=== PATIENT | male | born 1975 | race Two or more races ===

== ENCOUNTER 2024-12-06 07:14 | Inpatient (IN) | payer BC, OTHER ==
[~2024-12-06] VITALS: Ht 165.1 cm; Wt 101.8 kg
[2024-12-06 07:35] LABS: Urine Bacteria None Seen /hpf (None Seen)
[2024-12-06 07:47] LABS: Urine Blood 2+ /uL (Negative); Urine Clarity Clear (Clear); Urine Color Light-Yellow (Yellow); Urine Protein, UAD TRACE (Negative); Urine Specific Gravity 1.016 (1.001-1.035); Urine Squamous Epithelial Cell None Seen /hpf (<5); Urine Urobilinogen Normal (Negative); Urine WBC 1 /HPF (0-3)
--- NOTE | 2024-12-06 07:51 | ED.PDOC ---
GI ASSESSMENT HPI Comments A 49 YEAR OLD MALE PRESENTS TO THE ED WITH COMPLAINT OF ABDOMINAL PAIN WITH NAUSEA AND VOMITING. URINE PATIENT STATES HE ATE A SALAD YESTERDAY NIGHT AND BEGAN TO EXPERIENCE LEFT LOWER QUADRANT ABDOMINAL PAIN THAT RADIATES TO HIS BACK, BUT NOTES HIS PAIN IS NOW IN HIS RIGHT LOWER QUADRANT OF THE ABDOMEN AND RADIATES TO HIS BACK. PATIENT REPORTS HE WAS ALSO EXPERIENCING NAUSEA AND VOMITING WITH HIS PAIN. PATIENT DENIES HEMATURIA, DYSURIA, FLANK PAIN, FEVER, CHILLS, SHORTNESS OF BREATH, CHEST PAIN, HEADACHE, OR OTHER COMPLAINTS. NO OTHER SYMPTOMS OR MODIFYING FACTORS AT THIS TIME. PATIENT IS ALERT, ORIENTED X 4, AND HAS STEADY GAIT. Chief Complaint: Abdominal Pain Time Seen by MD: 07:26 Primary Care Provider: NONE Reviewed Notes: Nurses Notes, Medications, Allergies Allergies: Coded Allergies: NO KNOWN ALLERGIES (Unverified , 12/06/24) Information Source: Patient Mode of Arrival: Ambulatory Timing: Days Duration: Since onset, Days Prehospital treatment: None Quality: Aching, Cramping, Sharp, Colicky Vomitus: Food Particles Stool: Normal Severity: Moderate Recent: None Recent Hx of: None Pain Location: RLQ, LLQ Modifying Factors: Nothing Associated sign and symptoms: Nausea, Vomiting, Abdominal Pain Past Medical History PAST MEDICAL HISTORY: Denies Surgical History: Denies all surgeries Family History Family History: Reviewed,noncontributory to illness Social History Smoker: Non-Smoker Alcohol: Denies ETOH Use Drugs: Denies Drug Use Lives In: Home Constitutional: denies: chills, diaphoresis, fatigue, fever, malaise, sweats, weakness, others EENTM: denies: blurred vision, double vision, ear bleeding, ear discharge, ear drainage, ear pain, ear ringing, eye pain, eye redness, hearing loss, mouth pain, mouth swelling, nasal discharge, nose bleeding, nose congestion, nose pain, photophobia, tearing, throat pain, throat swelling, voice changes, others Respiratory: denies: cough, hemoptysis, orthopnea, SOB at rest, shortness of breath, SOB with excertion, stridor, wheezing, others Gastrointestinal: reports: abdominal pain, nausea, vomiting; denies: abdomen distended, blood streaked bowels, constipated, diarrhea, dysphagia, difficulty swallowing, hematemesis, melena, poor appetite, poor fluid intake, rectal bleeding, rectal pain, others Genitourinary: reports: flank pain; denies: burning, dysuria, frequency, hematuria, incontinence, penile discharge, penile sore, pain, testicle pain, testicle swelling, urgency, others Neurological: denies: dizziness, fainting, headache, left sided numbness, left sided weakness, numbness, paresthesia, pre-existing deficit, right sided numbness, right sided weakness, seizure, speech problems, tingling, tremors, weakness, others Musculoskeletal: reports: back pain; denies: gout, joint pain, joint swelling, muscle pain, muscle stiffness, neck pain, others Integumetry: denies: bruises, change in color, change in hair/nails, dryness, laceration, lesions, lumps, rash, wounds, others Allergic/Immunocompromised: denies: Difficulty Healing, Frequent Infections, Hives, Itching, others Hematologic/Lymphatic: denies: anemia, blood clots, easy bleeding, easy bruising, swollen glands, others Endocrine: denies: excessive hunger, excessive sweating, excessive thirst, excessive urination, flushing, intolerance to cold, intolerance to heat, unexplained weight gain, unexplained weight loss, others Psychiatric: denies: anxiety, bipolar disorder, depression, hopeless, panic disorder, schizophrenia, sleepless, suicidal, others All Other Systems: Reviewed and Negative Physical Exam General Appearance: No Apparent Distress, Obese HEENT: Normal ENT Inspection, PERRL/EOMI, Pharynx Normal, TMs Normal Neck: Full Range of Motion, Non-Tender, Normal, Normal Inspection Respiratory: Chest Non-Tender, Lungs Clear, No Accessory Muscle Use, No Respiratory Distress, Normal Breath Sounds Cardiovascular: No Edema, No JVD, No Murmur, No Gallop, Normal Peripheral Pulses, Regular Rate/Rhythm Breast Exam: Deferred Gastrointestinal: Distended (GENERAL ABD. ), LLQ, No Organomegaly, No Pulsatile Mass, Normal Bowel Sounds, RLQ, Soft, Tenderness (RIGHT LOWER ABD, NO GUARDING AND REBOUND TENDERNESS.) Genitalia: Deferred Pelvic: Deferred Rectal: Deferred Extremities: No calf tenderness, Normal capillary refill, Normal inspection, Normal range of motion, Non-tender, No pedal edema Musculoskeletal : Location: Right Apperance: Tenderness: Moderate (RIGHT FLANK WITH CVA TENDERNESS. ) Neurologic: Alert, scrub technician II-XII nml as Tested, No Motor Deficits, Normal Affect, Normal Mood, No Sensory Deficits Cerebellar Function: Normal Reflexes: Normal Skin: Dry, Normal Color, Warm Peripheral Pulses: 2+ carotid (R), 2+ carotid (L) Lymphatic: No Adenopathy Was a procedure done? Was a procedure done?: No GI differential Dx Differential Diagnosis: Appendicitis, Bowel Obstruction, Diverticular disease, Gastritis/PUD, Gastroenteritis, Inflammatory BD, Pancreatitis, UTI, Urolithiasis, Dehydration, Food Poisoning, Viral, Kidney Stone X-Ray, Labs, Meds, VS Vital Signs Date Time Temp Pulse Resp B/P (MAP) Pulse Ox O2 Delivery O2 Flow Rate FiO2 12/06/24 09:49 89 18 179/99 12/06/24 07:51 85 16 100 Room Air 12/06/24 07:51 98.9 85 16 184/102 (129) 100 98.9 12/06/24 07:25 98.9 85 16 189/102 (131) 100 Lab Test 12/06/24 07:50 12/06/24 07:30 Range/Units White Blood Count 15.5 H 4.4-10.8 10^3/uL Red Blood Count 5.42 4.5-5.90 10^6/uL Hemoglobin 13.8 13.5-17.5 g/dL Hematocrit 41.9 41.0-53.0 % Mean Corpuscular Volume 77.3 L 80.0-100.0 fL Mean Corpuscular Hemoglobin 25.4 L 28.0-32.0 pg Mean Corpuscular Hemoglobin Concent 32.9 32.0-36.0 g/dL Red Cell Distribution Width 14.8 H 11.8-14.3 % Platelet Count 388 140-450 10^3/uL Mean Platelet Volume 7.7 6.9-10.8 fL Neutrophils (%) (Auto) 87.8 H 37.0-80.0 % Lymphocytes (%) (Auto) 7.4 L 10.0-50.0 % Monocytes (%) (Auto) 4.5 0.0-12.0 % Eosinophils (%) (Auto) 0.0 0.0-7.0 % Basophils (%) (Auto) 0.3 0.0-2.0 % Neutrophils # (Auto) 13.6 H 1.6-8.6 10 ^3/uL Lymphocytes # (Auto) 1.1 0.4-5.4 10 ^3/uL Monocytes # (Auto) 0.7 0-1.3 10 ^3/uL Eosinophils # (Auto) 0 0-0.8 10 ^3/uL Basophils # (Auto) 0 0-0.2 10 ^3/uL Nucleated Red Blood Cells 0.0 % Sodium Level 133 L 136-145 mmol/L Potassium Level 4.5 3.5-5.1 mmol/L Chloride Level 100 98-107 mmol/L Carbon Dioxide Level 23 20-31 mmol/L Anion Gap 10 5-15 Blood Urea Nitrogen 16 9-23 mg/dL Creatinine 1.10 0.700-1.30 mg/dL Glomerular Filtration Rate Calc 81 >90 mL/min BUN/Creatinine Ratio 14.5 10.0-20.0 Serum Glucose 140 H 74-106 mg/dL Hemoglobin A1c 5.8 H <5.7 % A1C Calcium Level 9.8 8.7-10.4 mg/dL Total Bilirubin 0.4 0.2-1.0 mg/dL Aspartate Amino Transferase (AST) 31 13-40 U/L Alanine Aminotransferase (ALT) 51 H 7-40 U/L Alkaline Phosphatase 59 46-116 U/L Total Protein 7.9 5.7-8.2 g/dL Albumin 5.0 H 3.2-4.8 g/dL Lipase 32 12-53 U/L Free Prostate Specific Antigen Pending Percent Free Prostate Specific Ag Pending Prostate Specific Antigen Total Pending Plasma/Serum Blood Alcohol < 3.0 <10 mg/dL Urine Color Light-yellow Yellow Urine Clarity Clear Clear Urine pH 6.0 5.0-9.0 Urine Specific [place] 1.016 1.001-1.035 Urine Protein Trace H Negative Urine Ketones Trace Negative Urine Blood 2+ H Negative /uL Urine Nitrite Negative Negative Urine Bilirubin Negative Negative Urine Urobilinogen Normal Negative mg/dL Urine Leukocyte Esterase Negative Negative /uL Urine RBC 6 0 - 3 /hpf Urine Microscopic WBC 1 0-3 /HPF Urine Squamous Epithelial Cells None seen <5 /hpf Urine Bacteria None seen None Seen /hpf Urine Glucose Trace Normal mg/dL Urine Opiates Screen Neg NEGATIVE Urine Fentanyl Screen Neg NEGATIVE Urine Barbiturates Screen Neg NEGATIVE Urine Phencyclidine Screen Neg NEGATIVE Urine Amphetamines Screen Neg NEGATIVE Urine Benzodiazepines Screen Neg NEGATIVE Urine Cocaine Screen Neg NEGATIVE Urine Cannabinoids Screen Neg NEGATIVE Current Medications Medications (Trade) Dose Ordered Sig/Brenda Route Start Time Stop Time Status Last Admin Sodium Chloride 1,000 ml @ 1,000 mls/hr Q1H ONCE IV 12/06/24 08:30 12/06/24 09:29 DC 12/06/24 08:25 Tamsulosin HCl (Flomax) 0.8 mg ONCE ONCE PO 12/06/24 09:45 12/06/24 09:46 DC 12/06/24 09:48 Sodium Chloride 1,000 ml @ 150 mls/hr Q6H40M ONCE IV 12/06/24 09:45 12/06/24 16:24 12/06/24 09:40 Exam: CT CT AB PEL WO CON-NO ORAL OR IV History: RIGHT LOWER ABD PAIN WITH NAUSEA AND VOMITING THIS MORNING. Comparison Study: None available at time of dictation. Technique: Multidetector spiral CT of the abdomen and pelvis was performed from lung bases to pubic symphysis. Imaging was performed without intravenous contrast. Coronal and sagittal multiplanar reformats were obtained from the axial data set by the technologist. Radiation Dose : 1. Abdomen/Pelvis: CTDIvol 26.2 mGy, DLP 1392.81 mGy*cm. Findings: Evaluation of vasculature and solid organs is limited due to lack of intravenous contrast use. Lung Bases: Lung bases are clear. Visualized portions of the heart and pericardium are unremarkable. Liver: The liver is enlarged measuring 24.7 cm. No focal lesions. Diffusely hypoattenuating liver parenchyma consistent with hepatic steatosis. Gallbladder and Biliary Tree: The gallbladder is unremarkable. No intrahepatic or extrahepatic biliary ductal dilatation. Spleen: Unremarkable Pancreas: The pancreas is grossly unremarkable. Adrenal Glands: Unremarkable Kidneys: Mild right hydroureteronephrosis due to 2 mm distal right ureteral calculus. Right perinephric fat stranding. Left kidney and visualized left ureter are unremarkable. GI tract: The stomach is grossly normal in appearance. No evidence of small bowel wall thickening or abnormal dilatation to suggest bowel obstruction. The colon is unremarkable. The appendix is visualized and is normal. Peritoneum/mesentery/retroperitoneum. No evidence of free intraperitoneal air. No ascites. No evidence of suspicious lymphadenopathy. Abdominal Wall: Unremarkable. Vasculature: The visualized abdominal aorta is normal in size and caliber. Evaluation of abdominal and pelvic vessels is limited due to lack of intravenous contrast. There are atherosclerotic calcifications in the aorta. Urinary Bladder: Grossly unremarkable for degree of distention. Pelvic Organs: Unremarkable Musculoskeletal: No aggressive focal bony lesions, acute fractures or dislocation. IMPRESSION: 1. Acute right obstructive uropathy due to 2 mm distal right ureteral calculus. 2. Hepatic steatosis and hepatomegaly. ATED BY: JAMAR FLAHERTY MD DICTATED DATE/TIME: 12/06/24815 SIGNED BY: JAMAR FLAHERTY MD SIGNED DATE/TIME: 12/06/24815 CC: X-Ray, Labs, Meds, VS Comment EXTERNAL MEDICAL RECORDS REVIEWED: [NONE] INDEPENDENT HISTORIANS: [NONE] SOCIAL DETERMINANTS OF HEALTH: [NONE] LABS ORDERED: CBC, CMP, UA, BLOOD ALCOHOL, UDS, LIPASE REVIEWED AND INTERPRETED RESULTS: WBC 15.5, BLOOD 2+ IMAGING ORDERED: CT ABD/PEL TREATMENTS ORDERED: NS 1 L IV, ZOFRAN 4 MG IV, TORADOL 30 MG IV, ROCEPHIN 1G IV, MORPHINE 4 MG IV, FLOMAX 0.8MG PO PROCEDURES PERFORMED: NONE CRITICAL CARE TIME: NONE I HAVE DISCUSSED THE PATIENT WITH THE ATTENDING PHYSICIAN DR. MACIAS AND HE AGREES WITH THE PATIENT'S PLAN OF CARE. UPON MY PHYSICAL EXAMINATION, THE PATIENT HAD RIGHT-SIDED CVA TENDERNESS NOTED UPON PALPATION, AND HAD GUARDING NOTED UPON PALPATION TO HIS ABDOMEN, BUT NO REBOUND TENDERNESS NOTED UPON PALPATION. MY DIFFERENTIAL DIAGNOSIS INCLUDES, RENAL STONE, APPENDICITIS, CONSTIPATION, BOWEL OBSTRUCTION, MESENTERIC ADENITIS, MUSCLE STRAIN, UTI, ACUTE CYSTITIS, DEHYDRATION, ELECTROLYTE IMBALANCE. LABS WERE ORDERED FOR THE PATIENT WHICH REVEALED AN ELEVATED WHITE BLOOD COUNT OF 15.5 AND BLOOD 2+ IN HIS URINE. PATIENT WAS MEDICATED HERE IN THE ED WITH 1 L NORMAL SALINE IV, ZOFRAN 4 MG IV, TORADOL 30 MG IV, ROCEPHIN 1 G IV, MORPHINE 4 MG IV, AND FLOMAX 0.8 MG P.O.. DUE TO THE PATIENT'S INTRACTABLE PAIN DESPITE GIVING THE PATIENT'S PAIN MEDICINE HERE IN THE ED AND OBSTRUCTING RIGHT RENAL STONE, I HAVE DETERMINED THE PATIENT NEEDS TO BE ADMITTED FOR FURTHER TREATMENT AND EVALUATION OF HIS OBSTRUCTING RIGHT RENAL STONE. THE ON-CALL ADMITTING PHYSICIAN WILL BE CONTACTED FOR ADMISSION OF THIS PATIENT. Images Reviewed?: Images reviewed and evaluated by me Time of 1ST Reevaluation: 10:00 Reevaluation 1ST: Unchanged Patient Education/Counseling: Diagnosis, Treatment Family Education/Counseling: Diagnosis, Treatment Departure 1 Departure Time of Disposition: 10:00 Impression: Primary Impression: Intractable abdominal pain Additional Impression: Right ureteral stone Disposition: ADMITTED INPATIENT Condition: Serious Critical Care Note Critical Care Time?: No Stability Stability form required: Yes Unstable for transfer: Requires medication, ED Physician Assesment, Possible rapid decline Heart Score Heart Score: Heart Score Response (Comments) Value History N/A 0 EKG N/A 0 Age N/A 0 Risk Factors N/A 0 Troponin N/A 0 Total 0 I personally scribed for JULIANN YUEN ([email or web address]) on 12/06/24 at 07:51. Electronically submitted by Owen De Luna ([email or web address]). I personally scribed for JULIANN YUEN PA ([email or web address]) on 12/06/24 at 08:33. Electronically submitted by Owen De Luna ([email or web address]). I personally scribed for JULIANN YUEN PA ([email or web address]) on 12/06/24 at 09:16. Electronically submitted by Owen De Luna ([email or web address]). I personally scribed for JULIANN YUEN PA ([email or web address]) on 12/06/24 at 09:29. Electronically submitted by Owen De Luna ([email or web address]). I personally scribed for JULIANN YUEN PA ([email or web address]) on 12/06/24 at 09:38. Electronically submitted by Owen De Luna ([email or web address]). JULIANN YUEN Dec 06, 2024 07:51
[2024-12-06 07:58] LABS: Amphetamine Screen, Urine Neg (NEGATIVE); Barbiturate Scree,Urine Neg (NEGATIVE); Benzodiazephine Screen, Urine Neg (NEGATIVE); Cannabinoid Screen, Urine Neg (NEGATIVE); Cocaine Screen, Urine Neg (NEGATIVE); Opiate Scree,Urine Neg (NEGATIVE); Phencyclidine Screen, Urine Neg (NEGATIVE)
[2024-12-06 08:09] LABS: Basophils # (auto) 0 10 ^3/uL (0-0.2); Basophils % (auto) 0.3 % (0.0-2.0); Eosinophils # (auto) 0 10 ^3/uL (0-0.8); Hematocrit 41.9 % (41.0-53.0); Hemoglobin 13.8 g/dL (13.5-17.5); Lymphocytes # (auto) 1.1 10 ^3/uL (0.4-5.4); Lymphocytes % (auto) 7.4 % (10.0-50.0); Mean Corpuscular Hemoglobin 25.4 pg (28.0-32.0); Mean Corpuscular Hgb Conc. 32.9 g/dL (32.0-36.0); Mean Corpuscular Volume 77.3 fL (80.0-100.0); Monocytes # (auto) 0.7 10 ^3/uL (0-1.3); Monocytes % (auto) 4.5 % (0.0-12.0); Neutrophils # (auto) 13.6 10 ^3/uL (1.6-8.6); Neutrophils % (auto) 87.8 % (37.0-80.0); Platelet Count (auto) 388 10^3/uL (140-450); Red Blood Cells 5.42 10^6/uL (4.5-5.90); Red Cell Distribution Width 14.8 % (11.8-14.3); White Blood Cell 15.5 10^3/uL (4.4-10.8)
--- NOTE | 2024-12-06 08:19 | DVH ---
Exam: CT CT AB PEL WO CON-NO ORAL OR IV History: RIGHT LOWER ABD PAIN WITH NAUSEA AND VOMITING THIS MORNING. Comparison Study: None available at time of dictation. Technique: Multidetector spiral CT of the abdomen and pelvis was performed from lung bases to pubic s ymphysis. Imaging was performed without intravenous contrast. Coronal and sagittal multiplanar refor mats were obtained from the axial data set by the technologist. Radiation Dose : 1. Abdomen/Pelvis: CTDIvol 26.2 mGy, DLP 1392.81 mGy*cm. Findings: Evaluation of vasculature and solid organs is limited due to lack of intravenous contrast use. Lung Bases: Lung bases are clear. Visualized portions of the heart and pericardium are unremarkable. Liver: The liver is enlarged measuring 24.7 cm. No focal lesions. Diffusely hypoattenuating liver pa renchyma consistent with hepatic steatosis. Gallbladder and Biliary Tree: The gallbladder is unremarkable. No intrahepatic or extrahepatic bilia ry ductal dilatation. Spleen: Unremarkable Pancreas: The pancreas is grossly unremarkable. Adrenal Glands: Unremarkable Kidneys: Mild right hydroureteronephrosis due to 2 mm distal right ureteral calculus. Right perinephr ic fat stranding. Left kidney and visualized left ureter are unremarkable. GI tract: The stomach is grossly normal in appearance. No evidence of small bowel wall thickening or abnormal dilatation to suggest bowel obstruction. The colon is unremarkable. The appendix is visual ized and is normal. Peritoneum/mesentery/retroperitoneum. No evidence of free intraperitoneal air. No ascites. No evidenc e of suspicious lymphadenopathy. Abdominal Wall: Unremarkable. Vasculature: The visualized abdominal aorta is normal in size and caliber. Evaluation of abdominal a nd pelvic vessels is limited due to lack of intravenous contrast. There are atherosclerotic calcifica tions in the aorta. Urinary Bladder: Grossly unremarkable for degree of distention. Pelvic Organs: Unremarkable Musculoskeletal: No aggressive focal bony lesions, acute fractures or dislocation. IMPRESSION: 1. Acute right obstructive uropathy due to 2 mm distal right ureteral calculus. 2. Hepatic steatosis and hepatomegaly.
[2024-12-06] MEDS: SODIUM CHLORIDE 0.9% 1,000 ML IV ONE ×2 (08:25→09:40)
[2024-12-06] MEDS: ONDANSETRON HCL 4 MG/2 ML VIAL IV ONE (08:26)
[2024-12-06] MEDS: KETOROLAC TROMETH 30 MG/ML 1ML VIAL IV ONE (08:26)
[2024-12-06 08:31] LABS: Alanine Aminotransferase 51 U/L (7-40); Alkaline Phosphatase 59 U/L (46-116); Anion Gap 10 (5-15); Aspartate Aminotransferase 31 U/L (13-40); BUN/Creatinine Ratio 14.5 (10.0-20.0); Bilirubin, Total 0.4 mg/dL (0.2-1.0); Blood Alcohol < 3.0 mg/dL (<10); Blood Urea Nitrogen 16 mg/dL (9-23); Calcium 9.8 mg/dL (8.7-10.4); Carbon Dioxide 23 mmol/L (20-31); Chloride 100 mmol/L (98-107); Glucose 140 mg/dL (74-106); Potassium 4.5 mmol/L (3.5-5.1); Sodium 133 mmol/L (136-145); Total Protein 7.9 g/dL (5.7-8.2)
[2024-12-06 08:42] LABS: Lipase 32 U/L (12-53)
[2024-12-06] MEDS: cefTRIAXone 1GM/50ML D5W 50 ML IV ONE (08:45)
[2024-12-06] MEDS: TAMSULOSIN HYDROCHLORIDE 0.4 MG CAP PO ONE (09:48)
[2024-12-06] MEDS: MORPHINE SULFATE 4 MG/ML SYR/VIAL IV ONE (09:49)
--- NOTE | 2024-12-06 11:14 | DVHHP2 ---
History of Present Illness Reason for Visit: Left upper quadrant pain History of Present Illness Greg Huffman is a 49-year-old male with no past medical history who reports to the ED with left lower quadrant abdominal pain, nausea, and vomiting. Patient also reports that the pain radiates to his back now to his right lower quadrant. He also reported that he has kidney stones, current pain is 10/10 pressure-like and constant. Patient states that there are no relieving or triggering factors. Patient denies any recent ingestion of spoiled food, fever, chills, diarrhea, weakness, dizziness, diarrhea, chest pain, and shortness of breath. Patient also denies any urinary symptoms. Past Surgical History: None Family History: Cancer, Other (Mom with lung cancer and dad ) Smoke: No ALCOHOL: none Lives: with Family Domestic Violence: Neg Review of Systems Constitutional: No: Fever, Chills, Sweats, Weakness, Malaise, Other Eyes: No: Pain, Vision change, Conjunctivae inflammation, Eyelid inflammation, Other, Redness ENT: No: Ear pain, Ear discharge, Nose pain, Nose discharge, Nose congestion, Mouth pain, Mouth swelling, Throat pain, Throat swelling, Other Respiratory: No: Cough, Dry, Shortness of breath, SOB with excertion, Wheezing, Hemoptysis, Pleuritic Pain, Sputum, Wheezing, Other Cardiovascular: No: Chest Pain, Palpitations, Orthopnea, Paroxysmal Noc. Dyspnea, Edema, Lt Headedness, Other Gastrointestinal: Nausea, Vomiting, Abdominal Pain; No: Diarrhea, Constipation, Melena, Hematochezia, Other Genitourinary: No Dysuria, No Frequency, No Incontinence, No Hematuria, No Retention, No Other Musculoskeletal: back pain; No: other, neck pain, shoulder pain, arm pain, hand pain, leg pain, foot pain Skin: No: Rash, Lesions, Jaundice, Bruising, Other Neurological: No: Weakness, Numbness, Incoordination, Change in speech, Confusion, Seizures, Other Allergies: Coded Allergies: NO KNOWN ALLERGIES (Unverified , 12/06/24) Exam Vital Signs Vital Signs Date Time Temp Pulse Resp B/P (MAP) Pulse Ox O2 Delivery O2 Flow Rate FiO2 12/06/24 09:49 89 18 179/99 12/06/24 07:51 100 Room Air 12/06/24 07:51 98.9 98.9 General Appearance: Alert, Oriented X3, Cooperative, No acute distress HEENT: Atraumatic, PERRLA, EOMI, Mucous membr. moist/pink Respiratory: Clear to auscultation, Normal air movement Cardiovascular: Regular rate, Normal S1, Normal S2, No murmurs Abdominal: Normal bowel sounds, Soft, No hepatospenomegaly, No masses Extremities: No clubbing, No cyanosis, No edema, Normal pulses, No tenderness/swelling Skin: No rashes, No breakdown, No significant lesion Neuro: Normal gait, Normal speech, Strength at 5/5 X4 ext, Normal tone, Sensation intact Psych/Mental Status: Mental status NL, Mood NL Labs/Xrays Labs Test 12/06/24 07:50 12/06/24 07:30 Range/Units White Blood Count 15.5 H 4.4-10.8 10^3/uL Red Blood Count 5.42 4.5-5.90 10^6/uL Hemoglobin 13.8 13.5-17.5 g/dL Hematocrit 41.9 41.0-53.0 % Mean Corpuscular Volume 77.3 L 80.0-100.0 fL Mean Corpuscular Hemoglobin 25.4 L 28.0-32.0 pg Mean Corpuscular Hemoglobin Concent 32.9 32.0-36.0 g/dL Red Cell Distribution Width 14.8 H 11.8-14.3 % Platelet Count 388 140-450 10^3/uL Mean Platelet Volume 7.7 6.9-10.8 fL Neutrophils (%) (Auto) 87.8 H 37.0-80.0 % Lymphocytes (%) (Auto) 7.4 L 10.0-50.0 % Monocytes (%) (Auto) 4.5 0.0-12.0 % Eosinophils (%) (Auto) 0.0 0.0-7.0 % Basophils (%) (Auto) 0.3 0.0-2.0 % Neutrophils # (Auto) 13.6 H 1.6-8.6 10 ^3/uL Lymphocytes # (Auto) 1.1 0.4-5.4 10 ^3/uL Monocytes # (Auto) 0.7 0-1.3 10 ^3/uL Eosinophils # (Auto) 0 0-0.8 10 ^3/uL Basophils # (Auto) 0 0-0.2 10 ^3/uL Nucleated Red Blood Cells 0.0 % Sodium Level 133 L 136-145 mmol/L Potassium Level 4.5 3.5-5.1 mmol/L Chloride Level 100 98-107 mmol/L Carbon Dioxide Level 23 20-31 mmol/L Anion Gap 10 5-15 Blood Urea Nitrogen 16 9-23 mg/dL Creatinine 1.10 0.700-1.30 mg/dL Glomerular Filtration Rate Calc 81 >90 mL/min BUN/Creatinine Ratio 14.5 10.0-20.0 Serum Glucose 140 H 74-106 mg/dL Calcium Level 9.8 8.7-10.4 mg/dL Total Bilirubin 0.4 0.2-1.0 mg/dL Aspartate Amino Transferase (AST) 31 13-40 U/L Alanine Aminotransferase (ALT) 51 H 7-40 U/L Alkaline Phosphatase 59 46-116 U/L Total Protein 7.9 5.7-8.2 g/dL Albumin 5.0 H 3.2-4.8 g/dL Lipase 32 12-53 U/L Plasma/Serum Blood Alcohol < 3.0 <10 mg/dL Urine Color Light-yellow Yellow Urine Clarity Clear Clear Urine pH 6.0 5.0-9.0 Urine Specific Wallace 1.016 1.001-1.035 Urine Protein Trace H Negative Urine Ketones Trace Negative Urine Blood 2+ H Negative /uL Urine Nitrite Negative Negative Urine Bilirubin Negative Negative Urine Urobilinogen Normal Negative mg/dL Urine Leukocyte Esterase Negative Negative /uL Urine RBC 6 0 - 3 /hpf Urine Microscopic WBC 1 0-3 /HPF Urine Squamous Epithelial Cells None seen <5 /hpf Urine Bacteria None seen None Seen /hpf Urine Glucose Trace Normal mg/dL Urine Opiates Screen Neg NEGATIVE Urine Fentanyl Screen Neg NEGATIVE Urine Barbiturates Screen Neg NEGATIVE Urine Phencyclidine Screen Neg NEGATIVE Urine Amphetamines Screen Neg NEGATIVE Urine Benzodiazepines Screen Neg NEGATIVE Urine Cocaine Screen Neg NEGATIVE Urine Cannabinoids Screen Neg NEGATIVE Exam: CT CT AB PEL WO CON-NO ORAL OR IV History: RIGHT LOWER ABD PAIN WITH NAUSEA AND VOMITING THIS MORNING. Comparison Study: None available at time of dictation. Technique: Multidetector spiral CT of the abdomen and pelvis was performed from lung bases to pubic symphysis. Imaging was performed without intravenous cont rast. Coronal and sagittal multiplanar reformats were obtained from the axial data set by the technologist. Radiation Dose : 1. Abdomen/Pelvis: CTDIvol 26.2 mGy, DLP 1392.81 mGy*cm. Findings: Evaluation of vasculature and solid organs is limited due to lack of intravenous contrast use. Lung Bases: Lung bases are clear. Visualized portions of the heart and pericardium are unremarkable. Liver: The liver is enlarged measuring 24.7 cm. No focal lesions. Diffusely hypoattenuating liver parenchyma consistent with hepatic steatosis. Gallbladder and Biliary Tree: The gallbladder is unremarkable. No intrahepatic or extrahepatic biliary ductal dilatation. Spleen: Unremarkable Pancreas: The pancreas is grossly unremarkable. Adrenal Glands: Unremarkable Kidneys: Mild right hydroureteronephrosis due to 2 mm distal right ureteral calculus. Right perinephric fat stranding. Left kidney and visualized left ureter are unremarkable. GI tract: The stomach is grossly normal in appearance. No evidence of small bowel wall thickening or abnormal dilatation to suggest bowel obstruction. The colon is unremarkable. The appendix is visualized and is normal. Peritoneum/mesentery/retroperitoneum. No evidence of free intraperitoneal air. No ascites. No evidence of suspicious lymphadenopathy. Abdominal Wall: Unremarkable. Vasculature: The visualized abdominal aorta is normal in size and caliber. Evaluation of abdominal and pelvic vessels is limited due to lack of intravenous contrast. There are atherosclerotic calcifications in the aorta. Urinary Bladder: Grossly unremarkable for degree of distention. Pelvic Organs: Unremarkable Musculoskeletal: No aggressive focal bony lesions, acute fractures or dislocation. IMPRESSION: 1. Acute right obstructive uropathy due to 2 mm distal right ureteral calculus. 2. Hepatic steatosis and hepatomegaly. Assessment/Plan Assessment/Plan Assessment/Plan: Intractable abdominal pain due to acute right obstructive uropathy due to 2 mm distal right ureteral calculus Leukocytosis Hepatic steatosis Hepatomegaly Labs IV antibiotics-Rocephin UA NS 2 L given ED Tamsulosin Pain management Antiemetics Lipase blood alcohol CT abdomen and pelvis Drug screen Hyperglycemia Hemoglobin A1c ISS and Accu-Cheks FEN/PPX Diet Hep-Lock DVT prophylaxis not indicated patient ambulating PUD prophylaxis not indicated no history of GERD or GI bleed Admit to med surg Patient states he doesn't take any home medications Discussed plan of care with patient and nurse Plan discussed with: Patient My Orders Orders - JOANNE MCGEHE [employer] Procedure Category Date Status Time Psa Total+% Free LAB 12/06/24 In Process 10:15 Date of Service: Dec 06, 2024 Billing Provider: JOANNE MCGHEE Common Visit Codes: [id number] INP/OBS CARE (HIGH) JOANNE MCGHEE Dec 06, 2024 11:14
[2024-12-06] MEDS ORDERED: DEXTROSE (50%) 50ML SYRG IV PRN (11:15)
[2024-12-06 12:39] VITALS: BP 162/88; PULSE 80; RESP 18; TEMP 99; O2SAT 94
[2024-12-06] MEDS: InsuLIN REG 1unit/0.01ml Soln (100units/ml) SC SCH (12:39)
[2024-12-06] MEDS: ACCU-CHEK COMFORT CURVE STRIP VI SCH (12:39)
[2024-12-06] MEDS: HYDROcodone-ACET 5/325MG TAB PO PRN (13:15)
[2024-12-06 17:09] VITALS: BP 128/81; PULSE 118; RESP 16; TEMP 98.7; O2SAT 93
[2024-12-06 18:00] VITALS: BP 148/95; PULSE 107; RESP 18; O2SAT 92
[2024-12-06 18:13] VITALS: PULSE 107; RESP 18; O2SAT 92
[2024-12-06 20:00] VITALS: PULSE 107; RESP 18; O2SAT 92
[2024-12-06] MEDS: MORPHINE SULFATE INJ 2 MG/ml SYRG IV PRN (20:18)
[2024-12-06 21:00] VITALS: BP_SYST 117; BP_SYST 176; BP_DIAS 107; BP_DIAS 80; PULSE 92; RESP 17; TEMP 98.4; O2SAT 95
[2024-12-07] VITALS (8 sets, daily range): BP systolic 124–156; BP diastolic 80–99; PULSE 76–131; RESP 17–20; TEMP 98–98.6; O2SAT 92–98
[2024-12-07] MEDS: hydrALAZINE HCL 20 MG/ML VL IV PRN (01:26)
[2024-12-07 07:31] LABS: Alanine Aminotransferase 38 U/L (7-40); Albumin 4.3 g/dL (3.2-4.8); Alkaline Phosphatase 54 U/L (46-116); Anion Gap 11 (5-15); Aspartate Aminotransferase 25 U/L (13-40); BUN/Creatinine Ratio 10.2 (10.0-20.0); Basophils # (auto) 0 10 ^3/uL (0-0.2); Basophils % (auto) 0.4 % (0.0-2.0); Blood Urea Nitrogen 13 mg/dL (9-23); Calcium 9.2 mg/dL (8.7-10.4); Carbon Dioxide 22 mmol/L (20-31); Chloride 101 mmol/L (98-107); Eosinophils # (auto) 0.1 10 ^3/uL (0-0.8); Eosinophils % (auto) 1.2 % (0.0-7.0); Hematocrit 38.6 % (41.0-53.0); Hemoglobin 12.8 g/dL (13.5-17.5); Lymphocytes # (auto) 1.6 10 ^3/uL (0.4-5.4); Lymphocytes % (auto) 14.7 % (10.0-50.0); Mean Corpuscular Hemoglobin 25.6 pg (28.0-32.0); Mean Corpuscular Hgb Conc. 33.3 g/dL (32.0-36.0); Mean Corpuscular Volume 77.1 fL (80.0-100.0); Monocytes # (auto) 1.1 10 ^3/uL (0-1.3); Monocytes % (auto) 9.6 % (0.0-12.0); Neutrophils # (auto) 8.2 10 ^3/uL (1.6-8.6); Neutrophils % (auto) 74.1 % (37.0-80.0); Nucleated Red Blood Cells % 0.1 %; Platelet Count (auto) 336 10^3/uL (140-450); Potassium 3.6 mmol/L (3.5-5.1); Red Blood Cells 5.01 10^6/uL (4.5-5.90); Red Cell Distribution Width 14.9 % (11.8-14.3); White Blood Cell 11.1 10^3/uL (4.4-10.8)
[2024-12-07 07:33] LABS: Bilirubin, Total 0.8 mg/dL (0.2-1.0); Total Protein 6.8 g/dL (5.7-8.2)
[2024-12-07 07:44] LABS: Glucose 117 mg/dL (74-106); Sodium 134 mmol/L (136-145)
[2024-12-07 08:07] LABS: PSA Free 0.17 ng/mL; Prostate Specific Antigen 0.6 ng/mL (0.0-4.0)
[2024-12-07] MEDS: cefTRIAXone 1GM/50ML D5W 50 ML IV SCH (08:41)
--- NOTE | 2024-12-07 12:02 | DVHPN2 ---
Reviewed: Care Plan, H&P, Labs, Medications, Previous Orders, Radiology Changes from previous H/P or p: No Changes Eyes: No Pain, No Vision change, No Conjunctivae inflammation, No Eyelid inflammation, No Other, No Redness ENT: No Ear pain, No Ear discharge, No Nose pain, No Nose discharge, No Nose congestion, No Mouth pain, No Mouth swelling, No Throat pain, No Throat swelling, No Other Cardiovascular: No Chest Pain, No Palpitations, No Orthopnea, No Paroxysmal Noc. Dyspnea, No Edema, No Lt Headedness, No Other Respiratory: No Cough, No Dry, No Shortness of breath, No SOB with excertion, No Wheezing, No Hemoptysis, No Pleuritic Pain, No Sputum, No Other Gastrointestinal: Nausea, Vomiting, Abdominal Pain; No Diarrhea, No Constipation, No Melena, No Hematochezia, No Other Genitourinary: No Dysuria, No Frequency, No Incontinence, No Hematuria, No Retention, No Other Musculoskeletal: No other, No neck pain, No shoulder pain, No arm pain; back pain; No hand pain, No leg pain, No foot pain Skin: No Rash, No Lesions, No Jaundice, No Bruising, No Other Objective Vitals Vital Signs Date Time Temp Pulse Resp B/P (MAP) Pulse Ox O2 Delivery O2 Flow Rate FiO2 12/07/24 11:29 110 18 143/87 12/07/24 09:00 98.2 95 98.2 12/06/24 20:00 Room Air* 0 21 Intake/Output Intake and Output 12/07/24 07:00 Intake Total 2675 ml Output Total 10 ml Balance 2665 ml Intake Oral 2000 ml IV Total 675 ml Output Urine Total 10 ml # Voids 2 Medications Current Medications Medications Dose Ordered Sig/Brenda Route Start Time Stop Time Status Last Admin Dose Admin Acetaminophen/ Hydrocodone Bitart 1 tab Q4HP PRN PO 12/06/24 11:15 12/07/24 08:58 1 TAB Ondansetron HCl 4 mg Q4HP PRN IV 12/06/24 11:15 Acetaminophen 650 mg Q6HP PRN PO 12/06/24 11:15 Morphine Sulfate 2 mg Q4HPRN PRN IV 12/06/24 11:15 12/07/24 11:29 2 MG Ceftriaxone Sodium 50 ml @ 100 mls/hr DAILY@09 IV 12/07/24 09:00 12/07/24 08:41 100 MLS/HR Tamsulosin HCl 0.4 mg QPM PO 12/07/24 18:00 Hydralazine HCl 10 mg Q6HP PRN IV 12/07/24 01:15 12/07/24 01:26 10 MG Laboratory Results Laboratory Tests 12/07/24 05:24 Chemistry Test 12/07/24 05:24 Albumin 4.3 g/dL (3.2-4.8) Calcium Level 9.2 mg/dL (8.7-10.4) Total Protein 6.8 g/dL (5.7-8.2) LFT Test 12/07/24 05:24 Alanine Aminotransferase (ALT) 38 U/L (7-40) Alkaline Phosphatase 54 U/L (46-116) Aspartate Amino Transferase (AST) 25 U/L (13-40) Total Bilirubin 0.8 mg/dL (0.2-1.0) Urinalysis Test 12/06/24 07:30 Urine Color Light-yellow (Yellow) Urine Clarity Clear (Clear) Urine pH 6.0 (5.0-9.0) Urine Specific [place] 1.016 (1.001-1.035) Urine Protein Trace (Negative) H Urine Ketones Trace (Negative) Urine Blood 2+ /uL (Negative) H Urine Nitrite Negative (Negative) Urine Bilirubin Negative (Negative) Urine Urobilinogen Normal mg/dL (Negative) Urine Leukocyte Esterase Negative /uL (Negative) Urine RBC 6 /hpf (0 - 3) Urine Microscopic WBC 1 /HPF (0-3) Urine Squamous Epithelial Cells None seen /hpf (<5) Urine Bacteria None seen /hpf (None Seen) Urine Glucose Trace mg/dL (Normal) Labs and/or images reviewed: Labs reviewed by me, Image(s) reviewed by me Assessment/Plan Assessment/Plan Acute right flank pain 2 mm right distal ureteral stone: Flomax pain medication IV fluids consult for Urology Dr. Tomas Right Lower quadrant pain WBC 15 K rule out appendicitis, consult for surgeon Dr. Cynthia Bernstein, right lower quadrant ultrasound ordered Rocephin Flagyl Acute dehydration: IV fluids In the ER notes and admitting notes it says left lower quadrant abdominal pain, but patient says it is right lower quadrant abdominal pain Plan discussed with: Patient My Orders Orders - BELTRAN MCLEAN MD Procedure Category Date Status Time Right Lower Quad US 12/07/24 Logged 11:53 * Urology Consult CONS 12/07/24 Verified 11:54 * Surgical Consult CONS 12/07/24 Verified Date of Service: Dec 07, 2024 Billing Provider: BELTRAN MCLEAN MD Common Visit Codes: [id number] INP/OBS CARE(HIGH) BELTRAN MCLEAN MD Dec 07, 2024 12:02
--- NOTE | 2024-12-07 13:10 | DVH ---
INDICATION: Right lower quadrant ultrasound rule out appendicitis TECHNIQUE: Graded compression technique along with Multiple real-time sonographic images were obtain ed for evaluation of the right lower quadrant. FINDINGS: The appendix was not visualized. No free fluid or lymph nodes are seen on this exam. IMPRESSION: 1.Nonvisualization of the appendix, thus cannot exclude appendicitis.
[2024-12-07] MEDS: metroNIDAZOLE 500MG/100ML 100 ML IV SCH (14:56)
--- NOTE | 2024-12-07 15:56 | DVHINCON2 ---
Date of service: Dec 07, 2024 Referring Physician [facility] Reason for Consultation right ureteral stone History of Present Illness 8 hour hx of lower abdominal pain now moved to lower hypogatric area.CT shows 2mm stone at right UVJ;multiple stones in past Past Medical History reviewed Past Surgical History reviewed Family History: Chronic obstructive pulmonary disease G8 MOTHER G8 FATHER Allergies: Coded Allergies: NO KNOWN ALLERGIES (Unverified , 12/06/24) Home Meds No Active Prescriptions or Reported Meds Current Medications Current Medications Medications (Trade) Dose Ordered Sig/Brenda Route PRN Reason Start Time Stop Time Status Last Admin Ceftriaxone Sodium 50 ml @ 100 mls/hr DAILY@09 IV 12/07/24 09:00 12/07/24 08:41 Tamsulosin HCl (Flomax) 0.4 mg QPM PO 12/07/24 18:00 Hydralazine HCl (Apresoline Injection) 10 mg Q6HP PRN IV SBP>150 12/07/24 01:15 12/07/24 01:26 Metronidazole 100 ml @ 100 mls/hr Q8HR IV 12/07/24 14:00 12/07/24 14:56 Review of Systems reviewed Vital Signs Vital Signs Date Time Temp Pulse Resp B/P (MAP) Pulse Ox O2 Delivery O2 Flow Rate FiO2 12/07/24 12:35 98.3 103 19 153/98 (116) 93 98.3 12/07/24 08:00 Room Air* 0 21 Labs/Diagnostic Data Labs Test 12/07/24 05:24 12/06/24 12:38 12/06/24 07:50 12/06/24 07:30 Range/Units White Blood Count 11.1 #H 4.4-10.8 10^3/uL Red Blood Count 5.01 4.5-5.90 10^6/uL Hemoglobin 12.8 L 13.5-17.5 g/dL Hematocrit 38.6 L 41.0-53.0 % Mean Corpuscular Volume 77.1 L 80.0-100.0 fL Mean Corpuscular Hemoglobin 25.6 L 28.0-32.0 pg Mean Corpuscular Hemoglobin Concent 33.3 32.0-36.0 g/dL Red Cell Distribution Width 14.9 H 11.8-14.3 % Platelet Count 336 140-450 10^3/uL Mean Platelet Volume 7.9 6.9-10.8 fL Neutrophils (%) (Auto) 74.1 37.0-80.0 % Lymphocytes (%) (Auto) 14.7 10.0-50.0 % Monocytes (%) (Auto) 9.6 0.0-12.0 % Eosinophils (%) (Auto) 1.2 0.0-7.0 % Basophils (%) (Auto) 0.4 0.0-2.0 % Neutrophils # (Auto) 8.2 1.6-8.6 10 ^3/uL Lymphocytes # (Auto) 1.6 0.4-5.4 10 ^3/uL Monocytes # (Auto) 1.1 0-1.3 10 ^3/uL Eosinophils # (Auto) 0.1 0-0.8 10 ^3/uL Basophils # (Auto) 0 0-0.2 10 ^3/uL Nucleated Red Blood Cells 0.1 % Sodium Level 134 L 136-145 mmol/L Potassium Level 3.6 3.5-5.1 mmol/L Chloride Level 101 98-107 mmol/L Carbon Dioxide Level 22 20-31 mmol/L Anion Gap 11 5-15 Blood Urea Nitrogen 13 9-23 mg/dL Creatinine 1.27 0.700-1.30 mg/dL Glomerular Filtration Rate Calc 68 >90 mL/min BUN/Creatinine Ratio 10.2 10.0-20.0 Serum Glucose 117 H 74-106 mg/dL Calcium Level 9.2 8.7-10.4 mg/dL Total Bilirubin 0.8 0.2-1.0 mg/dL Aspartate Amino Transferase (AST) 25 13-40 U/L Alanine Aminotransferase (ALT) 38 7-40 U/L Alkaline Phosphatase 54 46-116 U/L Total Protein 6.8 5.7-8.2 g/dL Albumin 4.3 3.2-4.8 g/dL POC Glucose 128 H 70-106 mg/dl Hemoglobin A1c 5.8 H <5.7 % A1C Lipase 32 12-53 U/L Free Prostate Specific Antigen 0.17 N/A ng/mL Percent Free Prostate Specific Ag 28.3 . % Prostate Specific Antigen Total 0.6 0.0-4.0 ng/mL Plasma/Serum Blood Alcohol < 3.0 <10 mg/dL Urine Color Light-yellow Yellow Urine Clarity Clear Clear Urine pH 6.0 5.0-9.0 Urine Specific [place] 1.016 1.001-1.035 Urine Protein Trace H Negative Urine Ketones Trace Negative Urine Blood 2+ H Negative /uL Urine Nitrite Negative Negative Urine Bilirubin Negative Negative Urine Urobilinogen Normal Negative mg/dL Urine Leukocyte Esterase Negative Negative /uL Urine RBC 6 0 - 3 /hpf Urine Microscopic WBC 1 0-3 /HPF Urine Squamous Epithelial Cells None seen <5 /hpf Urine Bacteria None seen None Seen /hpf Urine Glucose Trace Normal mg/dL Urine Opiates Screen Neg NEGATIVE Urine Fentanyl Screen Neg NEGATIVE Urine Barbiturates Screen Neg NEGATIVE Urine Phencyclidine Screen Neg NEGATIVE Urine Amphetamines Screen Neg NEGATIVE Urine Benzodiazepines Screen Neg NEGATIVE Urine Cocaine Screen Neg NEGATIVE Urine Cannabinoids Screen Neg NEGATIVE Assessment 2mm right ureteral stone Plan/Recommendation coninue,hydration,analgesia; kub 12/08 Plan discussed with: Patient ELENA ROSALES MD Dec 07, 2024 15:56
[2024-12-07] MEDS: TAMSULOSIN HYDROCHLORIDE 0.4 MG CAP PO SCH (18:20)
[2024-12-07] MEDS: DOCUSATE SOD 100 MG CAP PO ONE (21:38)
[2024-12-08] VITALS (8 sets, daily range): BP systolic 123–149; BP diastolic 76–98; PULSE 91–134; RESP 18–20; TEMP 97.8–98.4; O2SAT 92–97
[2024-12-08] MEDS: HYDROmorphone HCL 2 MG/ML VL/or syr IV PRN (03:55)
[2024-12-08] MEDS: ONDANSETRON HCL 4 MG/2 ML VIAL IV PRN (04:01)
--- NOTE | 2024-12-08 06:16 | DVHINCON2 ---
Date of service: Dec 08, 2024 Family History: Chronic obstructive pulmonary disease G8 MOTHER G8 FATHER Allergies: Coded Allergies: NO KNOWN ALLERGIES (Unverified , 12/06/24) Home Meds No Active Prescriptions or Reported Meds Current Medications Current Medications Medications (Trade) Dose Ordered Sig/Brenda Route PRN Reason Start Time Stop Time Status Last Admin Ceftriaxone Sodium 50 ml @ 100 mls/hr DAILY@09 IV 12/07/24 09:00 12/07/24 08:41 Tamsulosin HCl (Flomax) 0.4 mg QPM PO 12/07/24 18:00 12/07/24 18:20 Metronidazole 100 ml @ 100 mls/hr Q8HR IV 12/07/24 14:00 12/08/24 05:06 Hydromorphone HCl (Dilaudid Injection) 0.25 mg Q4HPRN PRN IV SEVERE PAIN (7-10 PAIN SCALE) 12/07/24 21:00 12/08/24 03:55 Vital Signs Vital Signs Date Time Temp Pulse Resp B/P (MAP) Pulse Ox O2 Delivery O2 Flow Rate FiO2 12/08/24 05:00 98.2 95 20 136/80 (98) 94 98.2 12/07/24 20:00 Room Air* 0 21 Labs/Diagnostic Data Labs Test 12/07/24 05:24 12/06/24 12:38 12/06/24 07:50 12/06/24 07:30 Range/Units White Blood Count 11.1 #H 4.4-10.8 10^3/uL Red Blood Count 5.01 4.5-5.90 10^6/uL Hemoglobin 12.8 L 13.5-17.5 g/dL Hematocrit 38.6 L 41.0-53.0 % Mean Corpuscular Volume 77.1 L 80.0-100.0 fL Mean Corpuscular Hemoglobin 25.6 L 28.0-32.0 pg Mean Corpuscular Hemoglobin Concent 33.3 32.0-36.0 g/dL Red Cell Distribution Width 14.9 H 11.8-14.3 % Platelet Count 336 140-450 10^3/uL Mean Platelet Volume 7.9 6.9-10.8 fL Neutrophils (%) (Auto) 74.1 37.0-80.0 % Lymphocytes (%) (Auto) 14.7 10.0-50.0 % Monocytes (%) (Auto) 9.6 0.0-12.0 % Eosinophils (%) (Auto) 1.2 0.0-7.0 % Basophils (%) (Auto) 0.4 0.0-2.0 % Neutrophils # (Auto) 8.2 1.6-8.6 10 ^3/uL Lymphocytes # (Auto) 1.6 0.4-5.4 10 ^3/uL Monocytes # (Auto) 1.1 0-1.3 10 ^3/uL Eosinophils # (Auto) 0.1 0-0.8 10 ^3/uL Basophils # (Auto) 0 0-0.2 10 ^3/uL Nucleated Red Blood Cells 0.1 % Sodium Level 134 L 136-145 mmol/L Potassium Level 3.6 3.5-5.1 mmol/L Chloride Level 101 98-107 mmol/L Carbon Dioxide Level 22 20-31 mmol/L Anion Gap 11 5-15 Blood Urea Nitrogen 13 9-23 mg/dL Creatinine 1.27 0.700-1.30 mg/dL Glomerular Filtration Rate Calc 68 >90 mL/min BUN/Creatinine Ratio 10.2 10.0-20.0 Serum Glucose 117 H 74-106 mg/dL Calcium Level 9.2 8.7-10.4 mg/dL Total Bilirubin 0.8 0.2-1.0 mg/dL Aspartate Amino Transferase (AST) 25 13-40 U/L Alanine Aminotransferase (ALT) 38 7-40 U/L Alkaline Phosphatase 54 46-116 U/L Total Protein 6.8 5.7-8.2 g/dL Albumin 4.3 3.2-4.8 g/dL POC Glucose 128 H 70-106 mg/dl Hemoglobin A1c 5.8 H <5.7 % A1C Lipase 32 12-53 U/L Free Prostate Specific Antigen 0.17 N/A ng/mL Percent Free Prostate Specific Ag 28.3 . % Prostate Specific Antigen Total 0.6 0.0-4.0 ng/mL Plasma/Serum Blood Alcohol < 3.0 <10 mg/dL Urine Color Light-yellow Yellow Urine Clarity Clear Clear Urine pH 6.0 5.0-9.0 Urine Specific [place] 1.016 1.001-1.035 Urine Protein Trace H Negative Urine Ketones Trace Negative Urine Blood 2+ H Negative /uL Urine Nitrite Negative Negative Urine Bilirubin Negative Negative Urine Urobilinogen Normal Negative mg/dL Urine Leukocyte Esterase Negative Negative /uL Urine RBC 6 0 - 3 /hpf Urine Microscopic WBC 1 0-3 /HPF Urine Squamous Epithelial Cells None seen <5 /hpf Urine Bacteria None seen None Seen /hpf Urine Glucose Trace Normal mg/dL Urine Opiates Screen Neg NEGATIVE Urine Fentanyl Screen Neg NEGATIVE Urine Barbiturates Screen Neg NEGATIVE Urine Phencyclidine Screen Neg NEGATIVE Urine Amphetamines Screen Neg NEGATIVE Urine Benzodiazepines Screen Neg NEGATIVE Urine Cocaine Screen Neg NEGATIVE Urine Cannabinoids Screen Neg NEGATIVE Assessment [id number] AFEBRILE VSS ABD SOFT NON TENDER RLQ NON ACUTE NO CLINICAL/RADIOLOGICAL EVIDENCE OF AC APPENDICITIS R URETERIC STONE PLAN PER ALLOW CLEAR LIQUIDS Plan discussed with: Patient SYDNEY LAY MD Dec 08, 2024 06:16
--- NOTE | 2024-12-08 06:24 | DVHINCON2 ---
DATE OF CONSULTATION: 12/08/2024 HISTORY OF PRESENT ILLNESS: This patient is 49 years old, coming in with right flank pain and epigastric pain. Currently, his pain is resolving. No nausea, vomiting. No constipation, diarrhea. No hematemesis, melena. No bleeding per rectum. PAST MEDICAL HISTORY: No diabetes, hypertension. PAST SURGICAL HISTORY: No significant surgical history. PHYSICAL EXAMINATION: VITAL SIGNS: Afebrile, stable signs. HEENT: With no evidence of pallor, cyanosis, or jaundice. NECK: Supple, nontender with no thyromegaly or lymphadenopathy. CHEST AND LUNGS: Clear. HEART: Within normal limits. ABDOMEN: Soft, nontender in the right lower quadrant, mostly in the right flank. NEUROLOGIC: Not assessed. EXTREMITIES: Unremarkable. CLINICAL IMPRESSION: Abdominal pain, probably secondary to the right ureteric stone. Dr. Jha, Urology, has already seen him and he does clinically and radiologically not have acute appendicitis. PLAN: To manage him conservatively. There is no indication for urgent surgery and diet can be advanced. Kalen Bernstein MD RG/SAY TID: [id number] RECEIPT: [id number] cc: Miguel Angel Zhu MD
[2024-12-08 11:39] LABS: Basophils # (auto) 0 10 ^3/uL (0-0.2); Lymphocytes # (auto) 1.6 10 ^3/uL (0.4-5.4)
[2024-12-08 11:43] LABS: Basophils % (auto) 0.3 % (0.0-2.0); Eosinophils # (auto) 0.1 10 ^3/uL (0-0.8); Eosinophils % (auto) 1.4 % (0.0-7.0); Hematocrit 39.7 % (41.0-53.0); Hemoglobin 13.3 g/dL (13.5-17.5); Lymphocytes % (auto) 15.4 % (10.0-50.0); Mean Corpuscular Hemoglobin 25.8 pg (28.0-32.0); Mean Corpuscular Hgb Conc. 33.4 g/dL (32.0-36.0); Mean Corpuscular Volume 77.1 fL (80.0-100.0); Monocytes # (auto) 1.2 10 ^3/uL (0-1.3); Monocytes % (auto) 11.6 % (0.0-12.0); Neutrophils # (auto) 7.2 10 ^3/uL (1.6-8.6); Neutrophils % (auto) 71.3 % (37.0-80.0); Nucleated Red Blood Cells % 0.2 %; Platelet Count (auto) 319 10^3/uL (140-450); Red Blood Cells 5.15 10^6/uL (4.5-5.90); Red Cell Distribution Width 14.6 % (11.8-14.3); White Blood Cell 10.1 10^3/uL (4.4-10.8)
[2024-12-08 11:59] LABS: Alanine Aminotransferase 31 U/L (7-40); Albumin 4.6 g/dL (3.2-4.8); Alkaline Phosphatase 59 U/L (46-116); Anion Gap 9 (5-15); Aspartate Aminotransferase 17 U/L (13-40); Blood Urea Nitrogen 13 mg/dL (9-23); Calcium 9.5 mg/dL (8.7-10.4); Carbon Dioxide 24 mmol/L (20-31); Chloride 103 mmol/L (98-107); Potassium 3.7 mmol/L (3.5-5.1)
[2024-12-08 12:00] LABS: Bilirubin, Total 0.6 mg/dL (0.2-1.0); Total Protein 7.4 g/dL (5.7-8.2)
[2024-12-08 12:04] LABS: Glucose 149 mg/dL (74-106); Sodium 136 mmol/L (136-145)
--- NOTE | 2024-12-08 12:14 | DVHPN2 ---
Reviewed: Care Plan, H&P, Labs, Medications, Previous Orders, Radiology Changes from previous H/P or p: No Changes Eyes: No Pain, No Vision change, No Conjunctivae inflammation, No Eyelid inflammation, No Other, No Redness ENT: No Ear pain, No Ear discharge, No Nose pain, No Nose discharge, No Nose congestion, No Mouth pain, No Mouth swelling, No Throat pain, No Throat swelling, No Other Cardiovascular: No Chest Pain, No Palpitations, No Orthopnea, No Paroxysmal Noc. Dyspnea, No Edema, No Lt Headedness, No Other Respiratory: No Cough, No Dry, No Shortness of breath, No SOB with excertion, No Wheezing, No Hemoptysis, No Pleuritic Pain, No Sputum, No Other Gastrointestinal: Nausea, Vomiting, Abdominal Pain; No Diarrhea, No Constipation, No Melena, No Hematochezia, No Other Genitourinary: No Dysuria, No Frequency, No Incontinence, No Hematuria, No Retention, No Other Musculoskeletal: No other, No neck pain, No shoulder pain, No arm pain; back pain; No hand pain, No leg pain, No foot pain Skin: No Rash, No Lesions, No Jaundice, No Bruising, No Other Objective Vitals Vital Signs Date Time Temp Pulse Resp B/P (MAP) Pulse Ox O2 Delivery O2 Flow Rate FiO2 12/08/24 08:55 97.8 100 18 123/76 (92) 93 97.8 12/08/24 08:00 Room Air* 0 21 Intake/Output Intake and Output 12/08/24 07:00 Intake Total 830 ml Balance 830 ml Intake Oral 580 ml IV Total 250 ml # Voids 4 Medications Current Medications Medications Dose Ordered Sig/Brenda Route Start Time Stop Time Status Last Admin Dose Admin Acetaminophen/ Hydrocodone Bitart 1 tab Q4HP PRN PO 12/06/24 11:15 12/08/24 05:10 1 TAB Ondansetron HCl 4 mg Q4HP PRN IV 12/06/24 11:15 12/08/24 04:01 4 MG Acetaminophen 650 mg Q6HP PRN PO 12/06/24 11:15 Ceftriaxone Sodium 50 ml @ 100 mls/hr DAILY@09 IV 12/07/24 09:00 12/08/24 10:10 100 MLS/HR Tamsulosin HCl 0.4 mg QPM PO 12/07/24 18:00 12/07/24 18:20 0.4 MG Hydralazine HCl 10 mg Q6HP PRN IV 12/07/24 01:15 12/07/24 01:26 10 MG Metronidazole 100 ml @ 100 mls/hr Q8HR IV 12/07/24 14:00 12/08/24 05:06 100 MLS/HR Hydromorphone HCl 0.25 mg Q4HPRN PRN IV 12/07/24 21:00 12/08/24 03:55 0.25 MG Laboratory Results Laboratory Tests 12/08/24 11:04 Chemistry Test 12/08/24 11:04 Albumin 4.6 g/dL (3.2-4.8) Calcium Level 9.5 mg/dL (8.7-10.4) Total Protein 7.4 g/dL (5.7-8.2) LFT Test 12/08/24 11:04 Alanine Aminotransferase (ALT) 31 U/L (7-40) Alkaline Phosphatase 59 U/L (46-116) Aspartate Amino Transferase (AST) 17 U/L (13-40) Total Bilirubin 0.6 mg/dL (0.2-1.0) Urinalysis Test 12/06/24 07:30 Urine Color Light-yellow (Yellow) Urine Clarity Clear (Clear) Urine pH 6.0 (5.0-9.0) Urine Specific [place] 1.016 (1.001-1.035) Urine Protein Trace (Negative) H Urine Ketones Trace (Negative) Urine Blood 2+ /uL (Negative) H Urine Nitrite Negative (Negative) Urine Bilirubin Negative (Negative) Urine Urobilinogen Normal mg/dL (Negative) Urine Leukocyte Esterase Negative /uL (Negative) Urine RBC 6 /hpf (0 - 3) Urine Microscopic WBC 1 /HPF (0-3) Urine Squamous Epithelial Cells None seen /hpf (<5) Urine Bacteria None seen /hpf (None Seen) Urine Glucose Trace mg/dL (Normal) Labs and/or images reviewed: Labs reviewed by me, Image(s) reviewed by me Assessment/Plan Assessment/Plan Acute right flank pain 2 mm right distal ureteral stone: Flomax pain medication IV fluids consult for Urology Dr. Jha appreciated Right Lower quadrant pain WBC 15 K rule out appendicitis, consult for surgeon Dr. Cynthia Bernstein, right lower quadrant ultrasound shows appendicitis can not be excluded, continue Rocephin Flagyl, surgical consult by Dr. Cynthia Bernstein appreciated, advised the patient likely does not have appendicitis and advised to advanced diet Acute dehydration: IV fluids Patient Feeling better today white count coming down will start clear liquids Plan discussed with: Patient My Orders Orders - BELTRAN MCLEAN MD Procedure Category Date Status Time Kub Abdomen Single XY 12/09/24 Transmitted View 04:00 Complete Blood Count LAB 12/09/24 Verified 04:00 Comprehensive LAB 12/09/24 Verified Metabolic Panel 04:00 Date of Service: Dec 08, 2024 Billing Provider: BELTRAN MCLEAN MD Common Visit Codes: [id number] INP/OBS CARE(HIGH) BELTRAN MCLEAN MD Dec 08, 2024 12:14
[2024-12-08] MEDS: SODIUM CHLORIDE 0.9% 1,000 ML IV ONE (12:15)
--- NOTE | 2024-12-08 16:20 | DVH ---
Exam: XY KUB ABDOMEN SINGLE VIEW Indication: right ureteral stone [distal] Comparison: None Technique: 2 radiographic views of the abdomen. Findings: Nonspecific bowel-gas pattern. Nonobstructive bowel gas pattern noted. There is no definite evidence for pneumoperitoneum. No abnormal calcifications noted. Impression: Nonspecific bowel-gas pattern. No appreciable radiopaque renal or ureteral stone.
[2024-12-09] VITALS (8 sets, daily range): BP systolic 118–156; BP diastolic 77–102; PULSE 90–131; RESP 18–20; TEMP 98.1–99.2; O2SAT 92–96
[2024-12-09] MEDS ORDERED: MORPHINE SULFATE INJ 2 MG/ml SYRG IV PRN (00:30)
[2024-12-09 05:34] LABS: Basophils # (auto) 0 10 ^3/uL (0-0.2); Eosinophils # (auto) 0.3 10 ^3/uL (0-0.8); Hemoglobin 12.7 g/dL (13.5-17.5); Mean Corpuscular Hemoglobin 25.8 pg (28.0-32.0); Monocytes # (auto) 1.1 10 ^3/uL (0-1.3); Red Cell Distribution Width 14.7 % (11.8-14.3)
[2024-12-09 05:36] LABS: Basophils % (auto) 0.4 % (0.0-2.0); Eosinophils % (auto) 2.8 % (0.0-7.0); Hematocrit 37.7 % (41.0-53.0); Lymphocytes # (auto) 1.4 10 ^3/uL (0.4-5.4); Mean Corpuscular Hgb Conc. 33.7 g/dL (32.0-36.0); Mean Corpuscular Volume 76.6 fL (80.0-100.0); Monocytes % (auto) 12.2 % (0.0-12.0); Neutrophils # (auto) 6.5 10 ^3/uL (1.6-8.6); Neutrophils % (auto) 69.6 % (37.0-80.0); Platelet Count (auto) 307 10^3/uL (140-450); Red Blood Cells 4.93 10^6/uL (4.5-5.90); White Blood Cell 9.4 10^3/uL (4.4-10.8)
[2024-12-09 05:52] LABS: Alanine Aminotransferase 26 U/L (7-40); Albumin 4.4 g/dL (3.2-4.8); Alkaline Phosphatase 58 U/L (46-116); Anion Gap 8 (5-15); Aspartate Aminotransferase 19 U/L (13-40); BUN/Creatinine Ratio 7.5 (10.0-20.0); Blood Urea Nitrogen 10 mg/dL (9-23); Calcium 9.4 mg/dL (8.7-10.4); Carbon Dioxide 24 mmol/L (20-31); Chloride 104 mmol/L (98-107); Potassium 3.7 mmol/L (3.5-5.1); Sodium 136 mmol/L (136-145)
[2024-12-09 06:06] LABS: Bilirubin, Total 0.6 mg/dL (0.2-1.0)
[2024-12-09 06:29] LABS: Glucose 115 mg/dL (74-106)
--- NOTE | 2024-12-09 06:48 | DVH ---
EXAM: XR Abdomen, 1 View CLINICAL INDICATION: 2 mm rt ureteral stone TECHNIQUE: Frontal supine view of the abdomen/pelvis. COMPARISON: XY KUB ABDOMEN SINGLE VIEW on DOS: 12/08/24 FINDINGS: LIMITATIONS: Independent trained study, which limits evaluation for small calculus. GASTROINTESTINAL TRACT: Fecal retention in the colon consistent with constipation. No dilation. BONES/JOINTS: Unremarkable. No acute fracture. OTHER FINDINGS: . . . .. IMPRESSION: 1. Independent trained study, which limits evaluation for small calculus. 2. Fecal retention in the colon consistent with constipation.
--- NOTE | 2024-12-09 13:37 | DVHPN2 ---
Reviewed: Care Plan, H&P, Labs, Medications, Previous Orders, Radiology Changes from previous H/P or p: No Changes Eyes: No Pain, No Vision change, No Conjunctivae inflammation, No Eyelid inflammation, No Other, No Redness ENT: No Ear pain, No Ear discharge, No Nose pain, No Nose discharge, No Nose congestion, No Mouth pain, No Mouth swelling, No Throat pain, No Throat swelling, No Other Cardiovascular: No Chest Pain, No Palpitations, No Orthopnea, No Paroxysmal Noc. Dyspnea, No Edema, No Lt Headedness, No Other Respiratory: No Cough, No Dry, No Shortness of breath, No SOB with excertion, No Wheezing, No Hemoptysis, No Pleuritic Pain, No Sputum, No Other Gastrointestinal: Nausea, Vomiting, Abdominal Pain; No Diarrhea, No Constipation, No Melena, No Hematochezia, No Other Genitourinary: No Dysuria, No Frequency, No Incontinence, No Hematuria, No Retention, No Other Musculoskeletal: No other, No neck pain, No shoulder pain, No arm pain; back pain; No hand pain, No leg pain, No foot pain Skin: No Rash, No Lesions, No Jaundice, No Bruising, No Other Objective Vitals Vital Signs Date Time Temp Pulse Resp B/P (MAP) Pulse Ox O2 Delivery O2 Flow Rate FiO2 12/09/24 08:47 98.2 90 18 141/91 (108) 94 98.2 12/09/24 08:00 Room Air* 0 21 Intake/Output Intake and Output 12/09/24 07:00 Intake Total 3050 ml Balance 3050 ml Intake Oral 2900 ml IV Total 150 ml # Voids 14 Medications Current Medications Medications Dose Ordered Sig/Brenda Route Start Time Stop Time Status Last Admin Dose Admin Acetaminophen/ Hydrocodone Bitart 1 tab Q4HP PRN PO 12/06/24 11:15 12/08/24 22:59 1 TAB Ondansetron HCl 4 mg Q4HP PRN IV 12/06/24 11:15 12/08/24 04:01 4 MG Acetaminophen 650 mg Q6HP PRN PO 12/06/24 11:15 Ceftriaxone Sodium 50 ml @ 100 mls/hr DAILY@09 IV 12/07/24 09:00 12/09/24 10:08 100 MLS/HR Tamsulosin HCl 0.4 mg QPM PO 12/07/24 18:00 12/08/24 17:37 0.4 MG Hydralazine HCl 10 mg Q6HP PRN IV 12/07/24 01:15 12/07/24 01:26 10 MG Metronidazole 100 ml @ 100 mls/hr Q8HR IV 12/07/24 14:00 12/09/24 06:51 100 MLS/HR Morphine Sulfate 2 mg Q6HPRN PRN IV 12/09/24 00:30 Laboratory Results Laboratory Tests 12/09/24 04:53 Chemistry Test 12/09/24 04:53 Albumin 4.4 g/dL (3.2-4.8) Calcium Level 9.4 mg/dL (8.7-10.4) Total Protein 7.0 g/dL (5.7-8.2) LFT Test 12/09/24 04:53 Alanine Aminotransferase (ALT) 26 U/L (7-40) Alkaline Phosphatase 58 U/L (46-116) Aspartate Amino Transferase (AST) 19 U/L (13-40) Total Bilirubin 0.6 mg/dL (0.2-1.0) Urinalysis Test 12/06/24 07:30 Urine Color Light-yellow (Yellow) Urine Clarity Clear (Clear) Urine pH 6.0 (5.0-9.0) Urine Specific [place] 1.016 (1.001-1.035) Urine Protein Trace (Negative) H Urine Ketones Trace (Negative) Urine Blood 2+ /uL (Negative) H Urine Nitrite Negative (Negative) Urine Bilirubin Negative (Negative) Urine Urobilinogen Normal mg/dL (Negative) Urine Leukocyte Esterase Negative /uL (Negative) Urine RBC 6 /hpf (0 - 3) Urine Microscopic WBC 1 /HPF (0-3) Urine Squamous Epithelial Cells None seen /hpf (<5) Urine Bacteria None seen /hpf (None Seen) Urine Glucose Trace mg/dL (Normal) Labs and/or images reviewed: Labs reviewed by me, Image(s) reviewed by me Assessment/Plan Assessment/Plan Acute right flank pain 2 mm right distal ureteral stone: Flomax pain medication IV fluids consult for Urology Dr. Jha appreciated Right Lower quadrant pain WBC 15 K rule out appendicitis, consult for surgeon Dr. Cynthia Bernstein, right lower quadrant ultrasound shows appendicitis can not be excluded, continue Rocephin Flagyl, surgical consult by Dr. Cynthia Bernstein appreciated, advised the patient likely does not have appendicitis and advised to advanced diet Acute dehydration: IV fluids Complaining of constipation abdominal distention: Colace lactulose Possible DC tomorrow White count is coming down and afebrile Plan discussed with: Patient Date of Service: Dec 09, 2024 Billing Provider: BELTRAN MCLEAN MD Common Visit Codes: [id number] INP/OBS CARE(HIGH) BELTRAN MCLEAN MD Dec 09, 2024 13:37
[2024-12-09] MEDS: DOCUSATE SOD 100 MG CAP PO ONE (14:35)
[2024-12-09] MEDS: LACTULOSE 20Gm/30ML SOLN PO ONE ×2 (14:35→20:00)
--- NOTE | 2024-12-09 17:41 | DVHPN2 ---
Progress Note Date Seen: Dec 09, 2024 Medical Necessity Reason Pt with a Central, PICC or Fol: No Objective vital signs Vital Sign Date Time Temp Pulse Resp B/P (MAP) Pulse Ox O2 Delivery O2 Flow Rate FiO2 12/09/24 17:00 98.6 109 18 156/102 (120) 96 98.6 12/09/24 08:00 Room Air* 0 21 Total Intake and Output 12/08/24 12/08/24 12/09/24 15:00 23:00 07:00 Intake Total 50 ml 2000 ml 1000 ml Balance 50 ml 2000 ml 1000 ml medications Current Medications Medications Dose Ordered Sig/Brenda Route Start Time Stop Time Status Last Admin Dose Admin Acetaminophen/ Hydrocodone Bitart 1 tab Q4HP PRN PO 12/06/24 11:15 12/08/24 22:59 1 TAB Ondansetron HCl 4 mg Q4HP PRN IV 12/06/24 11:15 12/08/24 04:01 4 MG Acetaminophen 650 mg Q6HP PRN PO 12/06/24 11:15 Ceftriaxone Sodium 50 ml @ 100 mls/hr DAILY@09 IV 12/07/24 09:00 12/09/24 10:08 100 MLS/HR Tamsulosin HCl 0.4 mg QPM PO 12/07/24 18:00 12/08/24 17:37 0.4 MG Hydralazine HCl 10 mg Q6HP PRN IV 12/07/24 01:15 12/07/24 01:26 10 MG Metronidazole 100 ml @ 100 mls/hr Q8HR IV 12/07/24 14:00 12/09/24 14:00 100 MLS/HR Morphine Sulfate 2 mg Q6HPRN PRN IV 12/09/24 00:30 Docusate Sodium 100 mg BID PO 12/09/24 22:00 laboratory and microbiology Laboratory Tests 12/09/24 04:53 Test 12/09/24 04:53 Range/Units Serum Glucose 115 H 74-106 mg/dL Problem List/Assessment/Plan Problem List/Assessment/Plan AFEBRILE VSS ABD SOFT LESS TENDER CONTINUE CLOSE OBSERVATION Plan discussed with: Patient Dietary Evaluation Review Comments: advance to 2 gNa CCHO-60 diet when medically feasible. Expected Outcomes/Goals: gradual wt loss, contorlled blood glucose SYDNEY LAY MD Dec 09, 2024 17:41
[2024-12-09] MEDS: ACETAMINOPHEN 325 MG TAB PO PRN (21:36)
[2024-12-09] MEDS: DOCUSATE SOD 100 MG CAP PO SCH (21:42)
[2024-12-10 01:00] VITALS: BP 124/73; PULSE 103; TEMP 98.7; O2SAT 95
[2024-12-10 05:00] VITALS: BP 147/99; PULSE 98; RESP 18; TEMP 98.4; O2SAT 95
[2024-12-10 08:00] VITALS: PULSE 89; RESP 16; O2SAT 95
[2024-12-10 09:00] VITALS: BP 129/94; PULSE 89; RESP 16; TEMP 97.9; O2SAT 95
--- NOTE | 2024-12-10 12:35 | DVHDS2 ---
Discharge Summary Date of Admission Dec 06, 2024 at 11:04 Date of Discharge: Dec 10, 2024 Admitting Diagnosis Right lower quadrant abdominal pain Wounds: None Labs/Diagnostic Data: Laboratory Results Test 12/09/24 04:53 12/06/24 12:38 12/06/24 07:50 12/06/24 07:30 White Blood Count 9.4 10^3/uL (4.4-10.8) Red Blood Count 4.93 10^6/uL (4.5-5.90) Hemoglobin 12.7 g/dL (13.5-17.5) Hematocrit 37.7 % (41.0-53.0) Mean Corpuscular Volume 76.6 fL (80.0-100.0) Mean Corpuscular Hemoglobin 25.8 pg (28.0-32.0) Mean Corpuscular Hemoglobin Concent 33.7 g/dL (32.0-36.0) Red Cell Distribution Width 14.7 % (11.8-14.3) Platelet Count 307 10^3/uL (140-450) Mean Platelet Volume 7.7 fL (6.9-10.8) Neutrophils (%) (Auto) 69.6 % (37.0-80.0) Lymphocytes (%) (Auto) 15.0 % (10.0-50.0) Monocytes (%) (Auto) 12.2 % (0.0-12.0) Eosinophils (%) (Auto) 2.8 % (0.0-7.0) Basophils (%) (Auto) 0.4 % (0.0-2.0) Neutrophils # (Auto) 6.5 10 ^3/uL (1.6-8.6) Lymphocytes # (Auto) 1.4 10 ^3/uL (0.4-5.4) Monocytes # (Auto) 1.1 10 ^3/uL (0-1.3) Eosinophils # (Auto) 0.3 10 ^3/uL (0-0.8) Basophils # (Auto) 0 10 ^3/uL (0-0.2) Nucleated Red Blood Cells 0.0 % Sodium Level 136 mmol/L (136-145) Potassium Level 3.7 mmol/L (3.5-5.1) Chloride Level 104 mmol/L (98-107) Carbon Dioxide Level 24 mmol/L (20-31) Anion Gap 8 (5-15) Blood Urea Nitrogen 10 mg/dL (9-23) Creatinine 1.34 mg/dL (0.700-1.30) Glomerular Filtration Rate Calc 64 mL/min (>90) BUN/Creatinine Ratio 7.5 (10.0-20.0) Serum Glucose 115 mg/dL (74-106) Calcium Level 9.4 mg/dL (8.7-10.4) Total Bilirubin 0.6 mg/dL (0.2-1.0) Aspartate Amino Transferase (AST) 19 U/L (13-40) Alanine Aminotransferase (ALT) 26 U/L (7-40) Alkaline Phosphatase 58 U/L (46-116) Total Protein 7.0 g/dL (5.7-8.2) Albumin 4.4 g/dL (3.2-4.8) POC Glucose 128 mg/dl (70-106) Hemoglobin A1c 5.8 % A1C (<5.7) Lipase 32 U/L (12-53) Free Prostate Specific Antigen 0.17 ng/mL (N/A) Percent Free Prostate Specific Ag 28.3 % (.) Prostate Specific Antigen Total 0.6 ng/mL (0.0-4.0) Plasma/Serum Blood Alcohol < 3.0 mg/dL (<10) Urine Color Light-yellow (Yellow) Urine Clarity Clear (Clear) Urine pH 6.0 (5.0-9.0) Urine Specific [place] 1.016 (1.001-1.035) Urine Protein Trace (Negative) Urine Ketones Trace (Negative) Urine Blood 2+ /uL (Negative) Urine Nitrite Negative (Negative) Urine Bilirubin Negative (Negative) Urine Urobilinogen Normal mg/dL (Negative) Urine Leukocyte Esterase Negative /uL (Negative) Urine RBC 6 /hpf (0 - 3) Urine Microscopic WBC 1 /HPF (0-3) Urine Squamous Epithelial Cells None seen /hpf (<5) Urine Bacteria None seen /hpf (None Seen) Urine Glucose Trace mg/dL (Normal) Urine Opiates Screen Neg (NEGATIVE) Urine Fentanyl Screen Neg (NEGATIVE) Urine Barbiturates Screen Neg (NEGATIVE) Urine Phencyclidine Screen Neg (NEGATIVE) Urine Amphetamines Screen Neg (NEGATIVE) Urine Benzodiazepines Screen Neg (NEGATIVE) Urine Cocaine Screen Neg (NEGATIVE) Urine Cannabinoids Screen Neg (NEGATIVE) Other Laboratory Tests 2/17/25 04:53 Brief Hx & Hospital Course: 49-year-old male came in with a right flank pain found to have 2 mm right distal ureteral stone treated with the Flomax IV fluids and pain medications white count was high 15 K A diagnosed with a for acute appendicitis was entertained after doing CT abdomen pelvis without contrast. Seen by surgeon Dr. Cynthia Bernstein right lower quadrant abdominal ultrasound negative for acute appendicitis and the patient completely recovered. At the time of discharge the patient does not have any abdominal pain having regular bowel movement afebrile stable vital signs. Discharged home on Levaquin Flagyl and Atlantic he will follow up with the Urology Dr. Tomas regarding ureteral stone and surgeon Dr. Cynthia Bernstein. Consults/Reason for consult Urology Dr. Jha Surgeon Dr. Cynthia Bernstein Operations or Procedures CT abdomen pelvis without contrast Right lower quadrant abdominal ultrasound Condition at Discharge: Fair Final Diagnosis/Problems List Acute right flank pain 2 mm right distal ureteral stone: Flomax pain medication IV fluids consult for Urology Dr. Jha appreciated Acute Appendicitis ruled out Discharge Disposition: Home Discharge Instruct/Medications Diet: Regular Activity: Light activity Follow Up/Referral: Follow up with the Urology Dr. Tomas in 10 days reg ureteral stone Follow up with the surgeon Dr. Cynthia Bernstein in 10 days Medications: Levaquin Flagyl [place] Transmitted to the pharmacy 35 (Time Taken For discharge summary 35 minutes) Discharge Statement: "Patient was advised to return to the ER or call 911 if any headaches, dizziness, shortness of breath, chest pain, abdominal pain, bleeding, fevers, or worsening of medical condition. Patient was counseled about treatment plan, medications, possible side effects, patientverbalized understanding. All questions were answered to the best of my ability. This discharge took greater then 30 minutes in planning, reviewing documentation, counseling the patient, and discussing with other team members." ASSESSMENT ASSESSMENT Hospital Course Improved Assessment Acute right flank pain 2 mm right distal ureteral stone: Flomax pain medication IV fluids consult for Urology Dr. Jha appreciated Acute Appendicitis ruled out Date of Service: Dec 10, 2024 Billing Provider: BELTRAN MCLEAN MD Common Visit Codes: 39282-REU/OBS DISCH DAY >30min BELTRAN MCLEAN MD Dec 10, 2024 12:35
[2024-12-10] MEDS ORDERED: METR-344 PO (12:38)
[2024-12-10] MEDS ORDERED: HYDR-4902 PO (12:38)
[2024-12-10] MEDS ORDERED: LEVO500T91 PO (12:38)
--- NOTE | 2024-12-10 12:49 | DVHPN2 ---
Progress Note - Dictate Date Seen: Dec 10, 2024 Has the PT tested + for MRSA If YES, has PT been informed?: No Medical Necessity Reason Pt with a Central, PICC or Fol: No Medical Necessity Reason Flank pain resolved Subjective No pain reported vital signs Vital Sign Date Time Temp Pulse Resp B/P (MAP) Pulse Ox O2 Delivery O2 Flow Rate FiO2 12/10/24 09:00 97.9 89 16 129/94 (106) 95 97.9 12/10/24 08:00 Room Air* 0 21 Total Intake and Output 12/09/24 12/09/24 12/10/24 15:00 23:00 07:00 Intake Total 150 ml 2110 ml 350 ml Balance 150 ml 2110 ml 350 ml medications Current Medications Medications Dose Ordered Sig/Brenda Route Start Time Stop Time Status Last Admin Dose Admin Acetaminophen/ Hydrocodone Bitart 1 tab Q4HP PRN PO 12/06/24 11:15 12/08/24 22:59 1 TAB Ondansetron HCl 4 mg Q4HP PRN IV 12/06/24 11:15 12/08/24 04:01 4 MG Acetaminophen 650 mg Q6HP PRN PO 12/06/24 11:15 12/09/24 21:36 650 MG Ceftriaxone Sodium 50 ml @ 100 mls/hr DAILY@09 IV 12/07/24 09:00 12/09/24 10:08 100 MLS/HR Tamsulosin HCl 0.4 mg QPM PO 12/07/24 18:00 12/09/24 18:09 0.4 MG Hydralazine HCl 10 mg Q6HP PRN IV 12/07/24 01:15 12/07/24 01:26 10 MG Metronidazole 100 ml @ 100 mls/hr Q8HR IV 12/07/24 14:00 12/10/24 05:37 100 MLS/HR Morphine Sulfate 2 mg Q6HPRN PRN IV 12/09/24 00:30 Docusate Sodium 100 mg BID PO 12/09/24 22:00 objective PATIENT: ARLIN RILEY ACCT: [id number] UNIT: [id number] : 1975 LOC: ER ROOM / BED: / AGE / SEX: 49 / M ADM STATUS: REG ER SERVICE [id number] ORDERING PHYSICIAN: JULIANN YUEN PROCEDURE(s): ABPL - CT AB PEL WO CON-NO ORAL OR IV REASON: RIGHT LOWER ABD PAIN WITH NAUSEA AND VOMITING THIS MORNING. ORDER NUMBER(s): [id number], ACCESSION NUMBER(s): [id number] Exam: CT CT AB PEL WO CON-NO ORAL OR IV History: RIGHT LOWER ABD PAIN WITH NAUSEA AND VOMITING THIS MORNING. Comparison Study: None available at time of dictation. Technique: Multidetector spiral CT of the abdomen and pelvis was performed from lung bases to pubic symphysis. Imaging was performed without intravenous contrast. Coronal and sagittal multiplanar reformats were obtained from the axial data set by the technologist. Radiation Dose : 1. Abdomen/Pelvis: CTDIvol 26.2 mGy, DLP 1392.81 mGy*cm. Findings: Evaluation of vasculature and solid organs is limited due to lack of intravenous contrast use. Lung Bases: Lung bases are clear. Visualized portions of the heart and pericardium are unremarkable. Liver: The liver is enlarged measuring 24.7 cm. No focal lesions. Diffusely hypoattenuating liver parenchyma consistent with hepatic steatosis. Gallbladder and Biliary Tree: The gallbladder is unremarkable. No intrahepatic or extrahepatic biliary ductal dilatation. Spleen: Unremarkable Pancreas: The pancreas is grossly unremarkable. Adrenal Glands: Unremarkable Kidneys: Mild right hydroureteronephrosis due to 2 mm distal right ureteral calculus. Right perinephric fat stranding. Left kidney and visualized left ureter are unremarkable. GI tract: The stomach is grossly normal in appearance. No evidence of small bowel wall thickening or abnormal dilatation to suggest bowel obstruction. The colon is unremarkable. The appendix is visualized and is normal. Peritoneum/mesentery/retroperitoneum. No evidence of free intraperitoneal air. No ascites. No evidence of suspicious lymphadenopathy. Abdominal Wall: Unremarkable. Vasculature: The visualized abdominal aorta is normal in size and caliber. Evaluation of abdominal and pelvic vessels is limited due to lack of intravenous contrast. There are atherosclerotic calcifications in the aorta. Urinary Bladder: Grossly unremarkable for degree of distention. Pelvic Organs: Unremarkable Musculoskeletal: No aggressive focal bony lesions, acute fractures or dislocation. IMPRESSION: 1. Acute right obstructive uropathy due to 2 mm distal right ureteral calculus. 2. Hepatic steatosis and hepatomegaly. ATED BY: JENNIFER FLAHERTY MD DICTATED DATE/TIME: 12/06/24815 SIGNED BY: JENNIFER FLAHERTY MD SIGNED DATE/TIME: 12/06/24815 CC: laboratory and microbiology Laboratory Tests 12/09/24 04:53 Test 12/09/24 04:53 Range/Units Serum Glucose 115 H 74-106 mg/dL Problem List 2 mm right distal ureteral calculus Mild azotemia Assessment/Plan Since patient is having no pain and the stone was only 2 mm in size, I believe patient can be discharged and follow up as outpatient as needed Dietary Evaluation Review Comments: advance to 2 gNa CCHO-60 diet when medically feasible. Expected Outcomes/Goals: gradual wt loss, contorlled blood glucose Plan discussed with: Patient JAKE PEREZ MD Dec 10, 2024 12:49
[2024-12-10 13:00] VITALS: BP 138/94; PULSE 84; RESP 18; TEMP 97.8; O2SAT 96
--- NOTE | 2024-12-10 14:42 | DVHPN2 ---
Progress Note Date Seen: Dec 10, 2024 Has the PT tested + for MRSA If YES, has PT been informed?: No Medical Necessity Reason Pt with a Central, PICC or Fol: No Objective vital signs Vital Sign Date Time Temp Pulse Resp B/P (MAP) Pulse Ox O2 Delivery O2 Flow Rate FiO2 12/10/24 13:00 97.8 84 18 138/94 (109) 96 97.8 12/10/24 08:00 Room Air* 0 21 Total Intake and Output 12/09/24 12/09/24 12/10/24 15:00 23:00 07:00 Intake Total 150 ml 2110 ml 350 ml Balance 150 ml 2110 ml 350 ml medications Current Medications Medications Dose Ordered Sig/Brenda Route Start Time Stop Time Status Last Admin Dose Admin Acetaminophen/ Hydrocodone Bitart 1 tab Q4HP PRN PO 12/06/24 11:15 12/08/24 22:59 1 TAB Ondansetron HCl 4 mg Q4HP PRN IV 12/06/24 11:15 12/08/24 04:01 4 MG Acetaminophen 650 mg Q6HP PRN PO 12/06/24 11:15 12/09/24 21:36 650 MG Ceftriaxone Sodium 50 ml @ 100 mls/hr DAILY@09 IV 12/07/24 09:00 12/09/24 10:08 100 MLS/HR Tamsulosin HCl 0.4 mg QPM PO 12/07/24 18:00 12/09/24 18:09 0.4 MG Hydralazine HCl 10 mg Q6HP PRN IV 12/07/24 01:15 12/07/24 01:26 10 MG Metronidazole 100 ml @ 100 mls/hr Q8HR IV 12/07/24 14:00 12/10/24 05:37 100 MLS/HR Morphine Sulfate 2 mg Q6HPRN PRN IV 12/09/24 00:30 Docusate Sodium 100 mg BID PO 12/09/24 22:00 laboratory and microbiology Laboratory Tests 12/09/24 04:53 Test 12/09/24 04:53 Range/Units Serum Glucose 115 H 74-106 mg/dL Problem List/Assessment/Plan Problem List/Assessment/Plan AFEBRILE VSS ABD SOFT LESS TENDER CLEARED FOR DISCHARGE F/UP WITH Plan discussed with: Other My Orders My Orders Orders - SYDNEY LAY MD Procedure Category Date Status Time Mechanical Soft Diet DIET 12/09/24 Transmitted Dinner Dietary Evaluation Review Comments: advance to 2 gNa CCHO-60 diet when medically feasible. Expected Outcomes/Goals: gradual wt loss, contorlled blood glucose SYDNEY LAY MD Dec 10, 2024 14:42
== END 2024-12-10 14:36 | disposition home or self-care (01) | DRG 694 ==
LOC: ER 07:14 → OVERFLOW 11:04 → WEST WING 18:00
PROVIDERS: ADMIT Family Medicine; ATTEND Family Medicine
DX: N20.2 Calculus of kidney with calculus of ureter (principal); N13.9 Obstructive and reflux uropathy, unspecified; D72.829 Elevated white blood cell count, unspecified; E86.0 Dehydration; K76.0 Fatty (change of) liver, not elsewhere classified; R16.0 Hepatomegaly, not elsewhere classified; K59.00 Constipation, unspecified; Z80.1 Family history of malignant neoplasm of trachea, bronchus and lung; Z82.5 Family history of asthma and other chronic lower respiratory diseases
CPT/HCPCS: 36415; 74018; 74176; 76705; 80053; 80307; 80320; 81001; 82962; 83036; 83690; 84154; 85025; 96360; 96361; G0378; J1885; J2405; J3490

== ENCOUNTER 2025-07-31 12:15 | Emergency (ER) | payer BC ==
[~2025-07-31] VITALS: Ht 167.6 cm; Wt 104.5 kg
[~2025-07-31 12:15] MED LIST: HYDR-4902 PO; LEVO500T91 PO; METR-344 PO
--- NOTE | 2025-07-31 14:26 | ED.PDOC ---
History of Present Illness HPI Comments A 49 YEAR OLD MALE PRESENTS TO THE ED WITH COMPLAINT OF CONSTIPATION AND URINARY RETENTION. PATIENT STATES HE HAS BEEN EXPERIENCING CONSTIPATION AND URINARY RETENTION FOR THE PAST 1 DAY. PATIENT REPORTS HE HAS NO PAIN, BUT HAS A BLOATING SENSATION IN HIS STOMACH. PATIENT DENIES DYSURIA, HEMATURIA, FLANK JOE N, FEVER, CHILLS, SHORTNESS OF BREATH, CHEST PAIN, ABDOMINAL PAIN, NAUSEA, VOMITING, HEADACHE, OR OTHER COMPLAINTS. NO OTHER SYMPTOMS OR MODIFYING FACTORS AT THIS TIME. PATIENT IS ALERT, ORIENTED X 4, AND HAS STEADY GAIT. Chief Complaint: Urinary Time Seen by MD: 12:33 Primary Care Provider: NONE Reviewed Notes: Nurses Notes, Medications, Allergies Allergies: Coded Allergies: NO KNOWN ALLERGIES (Unverified , 12/06/24) Home Meds Active Scripts Tamsulosin Hcl (Flomax) 0.4 Mg Cap, 1 CAP PO DAILY, #30 CAP Prov:JULIANN YUEN 07/31/25 Sulfamethoxazole W/Trimethopri (Bactrim Ds Tablet) 1 Tab Tb, 1 TAB PO BID for 10 Days, #20 TAB Prov:JULIANN YUEN 07/31/25 Hydrocodone-Acetaminophen (Hydrocodone Bitartrate/AC 5-325 mg) 1 Tab Tab, 1 TAB PO QID PRN, #30 TAB Prov:BELTRAN MCLEAN MD 12/10/24 Metronidazole (Flagyl) 500 Mg Tab, 1 TAB PO TID, #30 TAB Prov:BELTRAN MCLEAN MD 12/10/24 Levofloxacin Hemihydrate (LEVAQUIN 500 MG) 500 Mg Tab, 1 TAB PO DAILY, #10 TAB Prov:BELTRAN MCLEAN MD 12/10/24 Information Source: Patient Mode of Arrival: Ambulatory Severity: Moderate Timing: Days Duration: Since onset, Days Prehospital treatment: None Medication Refill: For: Other (URINARY RETENTION, CONSTIPATION) Past Medical History PAST MEDICAL HISTORY: Denies Surgical History: Denies all surgeries Family History Family History: Reviewed,noncontributory to illness Social History Smoker: Non-Smoker Alcohol: Denies ETOH Use Drugs: Denies Drug Use Lives In: Home Constitutional: denies: chills, diaphoresis, fatigue, fever, malaise, sweats, weakness, others EENTM: denies: blurred vision, double vision, ear bleeding, ear discharge, ear drainage, ear pain, ear ringing, eye pain, eye redness, hearing loss, mouth pain, mouth swelling, nasal discharge, nose bleeding, nose congestion, nose pain, photophobia, tearing, throat pain, throat swelling, voice changes, others Respiratory: denies: cough, hemoptysis, orthopnea, SOB at rest, shortness of breath, SOB with excertion, stridor, wheezing, others Cardiovascular: denies: chest pain, dizzy spells, diaphoresis, Dyspnea on exertion, edema, irregular heart beat, left arm pain, lightheadedness, palpitations, PND, syncope, others Gastrointestinal: reports: constipated; denies: abdomen distended, abdominal pain, blood streaked bowels, diarrhea, dysphagia, difficulty swallowing, hematemesis, melena, nausea, poor appetite, poor fluid intake, rectal bleeding, rectal pain, vomiting, others Genitourinary: reports: others (URINARY RETENTION); denies: burning, dysuria, flank pain, frequency, hematuria, incontinence, penile discharge, penile sore, pain, testicle pain, testicle swelling, urgency Neurological: denies: dizziness, fainting, headache, left sided numbness, left sided weakness, numbness, paresthesia, pre-existing deficit, right sided numbness, right sided weakness, seizure, speech problems, tingling, tremors, weakness, others Musculoskeletal: denies: back pain, gout, joint pain, joint swelling, muscle pain, muscle stiffness, neck pain, others Integumetry: denies: bruises, change in color, change in hair/nails, dryness, laceration, lesions, lumps, rash, wounds, others Allergic/Immunocompromised: denies: Difficulty Healing, Frequent Infections, Hives, Itching, others Hematologic/Lymphatic: denies: anemia, blood clots, easy bleeding, easy bruising, swollen glands, others Endocrine: denies: excessive hunger, excessive sweating, excessive thirst, excessive urination, flushing, intolerance to cold, intolerance to heat, unexplained weight gain, unexplained weight loss, others Psychiatric: denies: anxiety, bipolar disorder, depression, hopeless, panic disorder, schizophrenia, sleepless, suicidal, others All Other Systems: Reviewed and Negative Physical Exam General Appearance: No Apparent Distress, Normal HEENT: Normal ENT Inspection, PERRL/EOMI, Pharynx Normal, TMs Normal Neck: Full Range of Motion, Non-Tender, Normal, Normal Inspection Respiratory: Chest Non-Tender, Lungs Clear, No Accessory Muscle Use, No Respiratory Distress, Normal Breath Sounds Cardiovascular: No Edema, No JVD, No Murmur, No Gallop, Normal Peripheral Pulses, Regular Rate/Rhythm Breast Exam: Deferred Gastrointestinal: No Organomegaly, Non Tender, No Pulsatile Mass, Normal Bowel Sounds, Soft Genitalia: Deferred Pelvic: Normal External Exam, Tender Uterus (MILD DISTENDED BLADDER. ) Rectal: Deferred Extremities: No calf tenderness, Normal capillary refill, Normal inspection, Normal range of motion, Non-tender, No pedal edema Musculoskeletal : Apperance: Normal Neurologic: Alert, clinical documentation manager II-XII nml as Tested, No Motor Deficits, Normal Affect, Normal Mood, No Sensory Deficits Cerebellar Function: Normal Reflexes: Normal Skin: Dry, Normal Color, Warm Peripheral Pulses: 2+ carotid (R), 2+ carotid (L) Lymphatic: No Adenopathy Was a procedure done? Was a procedure done?: No Differential Dx Considerations may include: URINARY RETENTION, CONSTIPATION, UTI, ACUTE CYSTITIS X-Ray, Labs, Meds, VS Vital Signs Date Time Temp Pulse Resp B/P (MAP) Pulse Ox O2 Delivery O2 Flow Rate FiO2 07/31/25 15:56 149 20 95 Room Air 07/31/25 15:49 98.5 149 20 162/105 (124) 95 98.5 07/31/25 12:17 98.8 130 20 165/97 98 98.8 Lab Test 07/31/25 13:58 Range/Units Urine Color Light-orange Yellow Urine Clarity Turbid H Clear Urine pH 6.0 5.0-9.0 Urine Specific [place] 1.022 1.001-1.035 Urine Protein 1+ H Negative Urine Ketones 2+ H Negative Urine Blood 3+ H Negative /uL Urine Nitrite 1+ H Negative Urine Bilirubin Negative Negative Urine Urobilinogen Normal Negative mg/dL Urine Leukocyte Esterase 3+ Negative /uL Urine RBC 266 0 - 3 /hpf Urine WBC Clumps Present None Seen /hpf Urine Microscopic WBC 154 H 0-3 /HPF Urine Squamous Epithelial Cells Few <5 /hpf Urine Bacteria Few H None Seen /hpf Urine Hyaline Casts Few 0 - 2 /lpf Urine Yeast (Budding) Few None Seen /hpf Urine Glucose Normal Normal mg/dL Current Medications Medications (Trade) Dose Ordered Sig/Brenda Route Start Time Stop Time Status Last Admin Ceftriaxone Sodium (Rocephin) 1,000 mg ONCE ONCE IM 07/31/25 15:15 07/31/25 15:16 DC 07/31/25 15:17 X-Ray, Labs, Meds, VS Comment EXTERNAL MEDICAL RECORDS REVIEWED: [NONE] INDEPENDENT HISTORIANS: [NONE] SOCIAL DETERMINANTS OF HEALTH: [NONE] LABS ORDERED: UA REVIEWED AND INTERPRETED RESULTS: LEUKO 3+, NITRITE 1+, BLOOD 3+, URINE WBC 154 IMAGING ORDERED: NONE TREATMENTS ORDERED: BAUTISTA CATHETER WAS PLACED. ROCEPHIN 1 G IM PROCEDURES PERFORMED: NONE CRITICAL CARE TIME: NONE I HAVE DISCUSSED THE PATIENT WITH THE ATTENDING PHYSICIAN DR. ARTEAGA AND HE AGREES WITH THE PATIENT'S PLAN OF CARE AND DISPOSITION. BASED ON HISTORY OF PRESENT ILLNESS, AND PHYSICAL EXAM, PATIENT WILL BE DISCHARGED HOME. DISCUSSED PLAN FOR DISCHARGE HOME WITH RX [SEPTRA DS AND FLOMAX ]. MEDICATION WARNINGS GIVEN. SHARED DECISION MAKING: PATIENT INSTRUCTED TO FOLLOW UP WITH PRIMARY CARE PROVIDER IN 1-2 DAYS FOR RE-EVALUATION OF SYMPTOMS. PATIENT VERBALIZES UNDERSTANDING TO RETURN TO ED FOR NEW OR WORSENING SYMPTOMS OR IF FOLLOW UP WITH PCP CANNOT BE OBTAINED. PATIENT FEELS COMFORTABLE GOING HOME AT THIS TIME. ALL QUESTIONS ADDRESSED AT TIME OF DISCHARGE. Time of 1ST Reevaluation: 16:03 Reevaluation 1ST: Improved Patient Education/Counseling: Diagnosis, Treatment, Need For Follow Up Family Education/Counseling: Diagnosis, Treatment, Need For Follow Up Medical Screening: No EMC Exist At This Time SEPSIS Sepsis Screen Date sepsis recognized/suspect: Jul 31, 2025 Time Sepsis recognized/suspect: 1219 Recent Procedure: No On Antibiotic Therapy: No Respiratory Rate >20: No Heart Rate >90: No Temp<36 C (96.8 F) or >38.3 C: No SBP <90 or MAP <65 mmHG: No New Acute Mental Status Change: No Is the patient on CPAP, BIPAP,: No Physician Orders Bautista Catheters (07/31/25 ) Vital Signs Date Time Temp Pulse Resp B/P (MAP) Pulse Ox O2 Delivery O2 Flow Rate FiO2 07/31/25 15:56 149 20 95 Room Air 07/31/25 15:49 98.5 149 20 162/105 (124) 95 98.5 07/31/25 12:17 98.8 130 20 165/97 98 98.8 Medications Medications Dose Ordered Sig/Brenda Route Start Time Stop Time Status Last Admin Dose Admin Ceftriaxone Sodium 1,000 mg ONCE ONCE IM 07/31/25 15:15 07/31/25 15:16 DC 07/31/25 15:17 Departure 1 Departure Time of Disposition: 16:03 Impression: Primary Impression: Urinary retention Additional Impression: Acute UTI (urinary tract infection) Disposition: HOME / SELF CARE / HOMELESS Condition: Stable Additional Instructions: FOLLOW-UP WITH PCP IN 1 TO 2 DAYS FOR REFERRAL TO UROLOGIST. TAKE MEDICATIONS PRESCRIBED. RETURN TO ED FOR ANY NEW OR WORSENING SYMPTOMS. e-Prescriptions Tamsulosin Hcl (Flomax) 0.4 Mg Cap 1 CAP PO DAILY, #30 CAP Prov: JULIANN YUEN 07/31/25 Sulfamethoxazole W/Trimethopri (Bactrim Ds Tablet) 1 Tab Tb 1 TAB PO BID for 10 Days, #20 TAB Prov: JULIANN YUEN 07/31/25 Discharged With: Self Critical Care Note Critical Care Time?: No Stability Stability form required: No I personally scribed for JULIANN YUEN ([email or web address]) on 07/31/25 at 14:26. Electronically submitted by Owen De Luna [email or web address]). I personally scribed for JULIANN YUEN ([email or web address]) on 07/31/25 at 15:05. Electronically submitted by Owen De Luna [email or web address]). JULIANN YUEN Jul 31, 2025 14:26
[2025-07-31 14:56] LABS: Urine Budding Yeast FEW /hpf (None Seen); Urine Protein, UAD 1+ (Negative); Urine WBC Clumps PRESENT /hpf (None Seen)
[2025-07-31] MEDS: cefTRIAXone SOD 1,000 MG VL IM ONE (15:17)
[2025-07-31] MEDS ORDERED: TAMS-35 PO (15:48)
[2025-07-31] MEDS ORDERED: BACDST PO (15:48)
[2025-07-31 15:49] VITALS: BP 162/105; TEMP 98.5
[2025-07-31 15:56] VITALS: PULSE 149; RESP 20; O2SAT 95
== END 2025-07-31 15:58 | disposition home or self-care (01) ==
LOC: ER 12:15
DX: N39.0 Urinary tract infection, site not specified (principal); R33.9 Retention of urine, unspecified; Z79.899 Other long term (current) drug therapy
CPT/HCPCS: 51702; 81001; 96372; 99284; A4315; J0696

== ENCOUNTER 2025-07-31 18:51 | Inpatient (IN) | payer BC ==
[~2025-07-31] VITALS: Ht 167.6 cm; Wt 107.5 kg
[~2025-07-31 18:51] MED LIST changes: +BACDST PO; +TAMS-35 PO
--- NOTE | 2025-07-31 19:28 | ED.PDOC ---
General HPI Comments HPI: 49 year old male came to ER due to urinary issues. Patient was seen here earlier for urinary retention. Louis catheter was inserted and was sent home with Flomax and Bactrim DS. However at home noted that the catheter wasn't draining properly, with reddish fluid filling the catheter and was leaking at the catheter insertion site. He felt diaphoretic and was tachycardic. Initial Vitals BP: 155/103 HR:154 RR:18 O2:95% Past Medical History: Kidney stones Past Surgical History: Knee surgery Social History: Denies ETOH, smoking, and drug use. Medications: Allergies: jesse: HPI: Poor Historian. REVIEW OF SYSTEMS: CONSTITUTIONAL: Denies acute: fever, , chills, generalized weakness. HEAD: Denies acute: headache, photophobia Eyes: Denies acute: Double vision, vision loss, eye pain, eye discharge. EARS: Denies acute: tinnitus, hearing loss, ear discharge, ear pain, THROAT: Denies acute: sore throat, swelling, difficulty swallowing , pain with swallowing, change in voice. NECK: Denies acute: neck pain, neck swelling, stiff neck. HEART: Denies acute : chest pain, palpitations, LUNGS: Denies acute: SOB, wheezing, cough, hemoptysis ABDOMEN: Denies acute: Nausea, Vomiting, diarrhea, melena , hematemesis, hematochezia SKIN: Denies acute: rash, redness, lesions, itchiness. EXTREMITIES: Denies acute: calf pain, numbness, tingling, weakness, denies pain in extremity. Denies acute: Low back pain. Neuro: Denies acute: focal neurological deficit, motor or sensory focal neurological deficit, tremors, seizure like activity, confusion, dizziness, change in mental status, loss of bowel or bladder function, cauda equina like symptoms. : Denies acute: dysuria, hematuria, flank pain, increase in urinary frequency. PSYCH: Denies acute: hallucination, suicidal ideation, homicidal ideation. PHYSICAL EXAM: General: ----moderate----acute distress, awake and alert. Head: normocephalic, atraumatic. Neck: supple, trachea is midline, no swelling. Throat: Normal phonation. Eyes:, no erythema, no purulent discharge, no proptosis, no icterus. Heart: regular tachycardic no significant murmur appreciated. Lungs: no apparent respiratory distress, Able to speak in full sentences. No wheezing, no rhonchi, no crackles. No stridors Clear to auscultation bilaterally. Abdomen: Suprapubic tender to palpation, non distended, soft, no guarding, no rebound, + bowel sounds. Neuro: Awake, Alert, oriented to name, self, situation, follows commands GCS=15. Speech is normal. Skin: no petechia, no purpura, no cyanosis, non-pale, not jaundice. Lower extremities: --no - Pitting edema no deformity, no focal swelling, no calf TTP. Makes eye contact. moves all four extremities. Face: no apparent facial droop. ED COURSE: DISCLAIMER: This medical document was created using an electronic medical record system with voice recognition software and computerized dictation system. Although this document has been carefully reviewed, there might still be some phonetic and typographical errors. Occasional wrong-word or "sound-alike" substitutions may have occurred due to the inherent limitations of voice recognition software. These areas are purely typographical due to imperfections of the software programs and do not reflect any compromise in the patient's medical care. Please read the chart carefully and recognize, using context, where these substitutions have occurred. Chief Complaint: Urinary Time Seen by MD: 19:27 Primary Care Provider: NONE Reviewed notes: Nurses Notes, Allergies Allergies: Coded Allergies: NO KNOWN ALLERGIES (Unverified , 12/06/24) Home Meds Active Scripts Tamsulosin Hcl (Flomax) 0.4 Mg Cap, 1 CAP PO DAILY, #30 CAP Prov:JULIANN YUEN 07/31/25 Sulfamethoxazole W/Trimethopri (Bactrim Ds Tablet) 1 Tab Tb, 1 TAB PO BID for 10 Days, #20 TAB Prov:JULIANN YUEN 07/31/25 Hydrocodone-Acetaminophen (Hydrocodone Bitartrate/AC 5-325 mg) 1 Tab Tab, 1 TAB PO QID PRN, #30 TAB Prov:BELTRAN MCLEAN MD 12/10/24 Metronidazole (Flagyl) 500 Mg Tab, 1 TAB PO TID, #30 TAB Prov:BELTRAN MCLEAN MD 12/10/24 Levofloxacin Hemihydrate (LEVAQUIN 500 MG) 500 Mg Tab, 1 TAB PO DAILY, #10 TAB Prov:BELTRAN MCLEAN MD 12/10/24 Information Source: Patient Mode of Arrival: Ambulatory Past Medical History PAST MEDICAL HISTORY: Kidney Stones Surgical History: Denies all surgeries Surgical History (Other): Knee surgery Family History Family History: Reviewed,noncontributory to illness Social History Smoker: Non-Smoker Alcohol: Denies ETOH Use Drugs: Denies Drug Use Lives In: Home Was a procedure done? Was a procedure done?: No Differential Diagnosis Kidney stone (Female): N/A Urinary Problem (Male): Bladder Outlet, Bladder Obstruction, Epididymitis, Prostatitis, Plelonephritis, Post op Complications, Renal Failure, Urethritis, Urinary Retention, Urolithiasis, UTI X-Ray, Labs, Meds, VS Vital Signs Date Time Temp Pulse Resp B/P (MAP) Pulse Ox O2 Delivery O2 Flow Rate FiO2 07/31/25 21:46 137 34 132/78 (96) 36 07/31/25 20:04 130 07/31/25 19:30 128 96 Room Air* 0 21 07/31/25 19:30 99.2 128 22 140/102 (115) 96 99.2 07/31/25 18:52 98.0 154 18 155/103 95 98.0 Lab Test 07/31/25 21:08 07/31/25 19:45 Range/Units Lactic Acid Level 1.5 0.4-2.0 mmol/L White Blood Count 27.7 H 4.4-10.8 10^3/uL Red Blood Count 5.49 4.5-5.90 10^6/uL Hemoglobin 14.2 13.5-17.5 g/dL Hematocrit 41.5 41.0-53.0 % Mean Corpuscular Volume 75.6 L 80.0-100.0 fL Mean Corpuscular Hemoglobin 25.9 L 28.0-32.0 pg Mean Corpuscular Hemoglobin Concent 34.2 32.0-36.0 g/dL Red Cell Distribution Width 15.5 H 11.8-14.3 % Platelet Count 342 140-450 10^3/uL Mean Platelet Volume 7.9 6.9-10.8 fL Neutrophils (%) (Auto) 37.0-80.0 % Lymphocytes (%) (Auto) 10.0-50.0 % Monocytes (%) (Auto) 0.0-12.0 % Basophils (%) (Auto) 0.0-2.0 % Neutrophils # (Auto) 1.6-8.6 10 ^3/uL Lymphocytes # (Auto) 0.4-5.4 10 ^3/uL Monocytes # (Auto) 0-1.3 10 ^3/uL Differential Total Cells Counted 100.0 100 Neutrophils % (Manual) 80 37.0-80.0 Band Neutrophils % (Manual) 10 Lymphocytes % (Manual) 7 L 10.0-50.0 Monocytes % (Manual) 3 0-12 Eosinophils % (Manual) 0 0-7 Basophils % (Manual) 0 0.0-2.0 Metamyelocytes % (manual) 0 Myelocytes % (Manual) 0 Promyelocytes % (Manual) 0 Blast Cells % (Manual) 0 Reactive Lymphocytes 0 Platelet Estimate Adequate Anisocytosis (manual) Slight Prothrombin Time 11.7 9.3-11.8 sec Prothrombin Time INR 1.12 0.9-1.15 Activated Partial Thromboplast Time 30.2 24.5-34.5 SEC Sodium Level 138 136-145 mmol/L Potassium Level 3.4 L 3.5-5.1 mmol/L Chloride Level 106 98-107 mmol/L Carbon Dioxide Level 19 L 20-31 mmol/L Anion Gap 13 5-15 Blood Urea Nitrogen 7 L 9-23 mg/dL Creatinine 0.87 0.700-1.30 mg/dL Glomerular Filtration Rate Calc 104 >90 mL/min BUN/Creatinine Ratio 8.0 L 10.0-20.0 Serum Glucose 135 H 74-106 mg/dL Hemoglobin A1c 5.9 H <5.7 % A1C Calcium Level 9.5 8.7-10.4 mg/dL Total Bilirubin 0.9 0.2-1.0 mg/dL Aspartate Amino Transferase (AST) 19 13-40 U/L Alanine Aminotransferase (ALT) 32 7-40 U/L Alkaline Phosphatase 62 46-116 U/L Total Protein 8.3 H 5.7-8.2 g/dL Albumin 4.9 H 3.2-4.8 g/dL Current Medications Medications (Trade) Dose Ordered Sig/Brenda Route Start Time Stop Time Status Last Admin Lactated Ringer's 1,900 ml @ 1,900 mls/hr ONCE ONCE IV 07/31/25 20:30 07/31/25 21:29 DC 07/31/25 20:45 Cefepime HCl 50 ml @ 50 mls/hr ONCE ONCE IV 07/31/25 20:45 07/31/25 21:44 DC 07/31/25 20:45 [place] [id number] Ph: [phone] DIAGNOSTIC IMAGING Diagnostic Imaging Report : [id number] Signed PATIENT: ARLIN RILEY ACCT: [id number] UNIT: [id number] : 1975 LOC: ER ROOM / BED: / AGE / SEX: 49 / M ADM STATUS: REG ER SERVICE 21 ORDERING PHYSICIAN: PADMINI DEWEY DO PROCEDURE(s): ABPL - CT AB PEL WO CON-NO ORAL OR IV REASON: urinary retention ORDER NUMBER(s): [id number], ACCESSION NUMBER(s): [id number] EXAM: CT CT AB PEL WO CON-NO ORAL OR IV INDICATION: urinary retention TECHNIQUE: Volumetric multidetector CT images of the abdomen and pelvis were obtained without contrast. All CT scans at this facility use dose modulation, iterative reconstruction, and/or weight based dosing when appropriate to reduce radiation dose to as low as reasonably achievable. COMPARISON: CT CT AB PEL WO CON-NO ORAL OR IV on DOS: 12/06/24 FINDINGS: [LOWER CHEST]: The partially visualized lung bases are clear without a pleural effusion. The cardiac size is normal without pericardial effusion. [LIVER]: Diffuse hepatic steatosis. [GALLBLADDER AND BILIARY TREE]: No cholelithiasis. [SPLEEN]: Unremarkable. [PANCREAS]: Unremarkable. [ADRENAL GLANDS]: Unremarkable [KIDNEYS]: No hydronephrosis. No nephroureterolithiasis. [BLADDER]: Louis catheter placement. Bladder is decompressed. Surrounding inflammatory stranding. Correlate for cystitis. [REPRODUCTIVE ORGANS]: Mild prostatomegaly [BOWEL/MESENTERY]: Stomach is decompressed limiting its evaluation. No CT evidence of bowel obstruction. normal appendix. [ASCITES]: Absent [LYMPHADENOPATHY]: No pathologically enlarged lymph nodes by CT size criteria [VASCULATURE]: No aneurysmal dilatation. [ABDOMINAL WALL]: Unremarkable. [MUSCULOSKELETAL]: No acute fracture or aggressive focal osseous lesion. Multifocal degenerative change of the visualized spine. IMPRESSION: 1. Louis catheter placement. 2. Bladder is decompressed. 3. Surrounding inflammatory stranding. 4. Correlate for cystitis. 5. No hydronephrosis or nephroureterolithiasis. ATED BY: SARATH MENARD MD DICTATED DATE/TIME: 07/31/252004 SIGNED BY: SARATH MENARD MD SIGNED DATE/TIME: 07/31/252004 CC: [place] [id number] Ph: [phone] DIAGNOSTIC IMAGING Diagnostic Imaging Report : [id number] Signed PATIENT: ARLIN RILEY ACCT: [id number] UNIT: [id number] : 1975 LOC: ER ROOM / BED: / AGE / SEX: 49 / M ADM STATUS: REG ER SERVICE 23 ORDERING PHYSICIAN: PADMINI DEWEY DO PROCEDURE(s): CXRP - CHEST PORTABLE REASON: sepsis ORDER NUMBER(s): [id number], ACCESSION NUMBER(s): [id number] CHEST RADIOGRAPH Indication: sepsis Technique: Single frontal view of the chest was obtained Comparison: None FINDINGS: Lines and Tubes: None Lungs: No focal consolidation. Pleura: Basilar areas of atelectasis with elevation of the diaphragms No pneumothorax. Cardiomediastinal contours: Unremarkable Bones: No acute osseous abnormality. IMPRESSION: 1. Bibasilar areas of atelectasis.. ATED BY: LEWIS BOGGS Jr., DO DICTATED DATE/TIME: 07/31/252053 SIGNED BY: LEWIS BOGGS Jr., DO SIGNED DATE/TIME: 07/31/252053 CC: Time of 1ST Reevaluation: 19:23 Reevaluation 1ST: Unchanged Patient Education/Counseling: Diagnosis, Treatment Family Education/Counseling: No Family Present Comments MDM: patient presented with the above HPI.-urinary symptoms-----workup was initiated. patient was found with the above mentioned diagnosis. the following medications were ordered: please refer to order lists of meds and tests obtained by myself Dr. Dewey. Patient ED course and VS have been stabilized. Patient has been reassessed in the ED and remained in a stable condition. Pertinent incidental findings were discussed with the patient and/or family. Patient/family voices understanding and is agreeable with plan. Patient has been observed in the ED adequate length of time to insure improvement/stability. Escalation of care considered: Consideration of escalation to observation or admission Patient found with a sepsis criteria. Sepsis bundle was initiated. Patient requested that we remove his Louis catheter he understands the risks. Patient was ADMITTED to the medicine team for further evaluation and treatment of their presentation. All the reports of any imaging studies that were ordered by myself were reviewed by myself. SEPSIS Sepsis Screen Date sepsis recognized/suspect: Jul 31, 2025 Time Sepsis recognized/suspect: 1853 Recent Procedure: No On Antibiotic Therapy: No Respiratory Rate >20: No Heart Rate >90: Yes Temp<36 C (96.8 F) or >38.3 C: No SBP <90 or MAP <65 mmHG: No New Acute Mental Status Change: No Is the patient on CPAP, BIPAP,: No Physician Orders Bladder Scan (07/31/25 ) Ct Ab Pel Wo Con-No Oral Or Iv (07/31/25 19:22) Chest Portable (07/31/25 20:24) Accucheck (07/31/25 20:24) Blood Culture (07/31/25 20:24) Notify Md If Map <65 Or Bp<90 (07/31/25 20:24) If Map<65 Start Vasopressor (07/31/25 20:24) Sepsis Reassesment After Fluid (07/31/25 21:24) Urine Bacterial Culture (07/31/25 23:02) Allergies (07/31/25 23:02) Code Status (07/31/25 23:02) Sodium Chloride 0.9% (07/31/25 23:15) Oxygen Per Hour (07/31/25 23:02) Hydrocodone-Acet 5/325mg Tab ([place] 5/32 (07/31/25 23:15) Ondansetron Hcl (Zofran) (07/31/25 23:15) Docusate Sodium Capsule (Colace Capsule) (07/31/25 23:15) Complete Blood Count (08/01/25 04:00) Comprehensive Metabolic Panel (08/01/25 04:00) Cardiac Diet-2gna,Lofat,Lochol (08/01/25 Breakfast) Condition: Serious (07/31/25 23:02) Acetaminophen Tablet (Tylenol Tablet) (07/31/25 23:15) Bedrest With Bathroom Privileg (07/31/25 23:02) Sequential Compression Device (07/31/25 ) Sodium Chloride 0.9% (07/31/25 23:15) Tamsulosin Hydrochloride (Flomax) (08/01/25 18:00) Piperacillin-Tazob 3.375gm (Zosyn 3.375g (08/01/25 06:00) Vital Signs Date Time Temp Pulse Resp B/P (MAP) Pulse Ox O2 Delivery O2 Flow Rate FiO2 07/31/25 21:46 137 34 132/78 (96) 36 07/31/25 20:04 130 07/31/25 19:30 128 96 Room Air* 0 21 07/31/25 19:30 99.2 128 22 140/102 (115) 96 99.2 07/31/25 18:52 98.0 154 18 155/103 95 98.0 Laboratory Tests Test 07/31/25 19:45 07/31/25 21:08 White Blood Count 27.7 10^3/uL (4.4-10.8) H Lactic Acid Level 1.5 mmol/L (0.4-2.0) Medications Medications Dose Ordered Sig/Brenda Route Start Time Stop Time Status Last Admin Dose Admin Cefepime HCl 50 ml @ 50 mls/hr ONCE ONCE IV 07/31/25 20:45 07/31/25 21:44 DC 07/31/25 20:45 Lactated Ringer's 1,900 ml @ 1,900 mls/hr ONCE ONCE IV 07/31/25 20:30 07/31/25 21:29 DC 07/31/25 20:45 Departure 1 Departure Time of Disposition: 19:29 Impression: Primary Impression: Sepsis Additional Impressions: Leukocytosis Sinus tachycardia Disposition: ADMITTED INPATIENT Admit to: Tele Condition: Guarded Discharged With: Self Critical Care Note Critical Care Time?: Yes (1 hr-critical care time only) Heart Score Heart Score: Heart Score Response (Comments) Value History N/A 0 EKG N/A 0 Age N/A 0 Risk Factors N/A 0 Troponin N/A 0 Total 0 I personally scribed for PADMINI DEWEY DO ([email or web address]) on 07/31/25 at 19:28. Electronically submitted by Dario Beasley ([employer]). I personally scribed for PADMINI DEWEY DO ([email or web address]) on 07/31/25 at 19:41. Electronically submitted by Dario Beasley ([employer]). I personally scribed for PADMINI DEWEY DO ([email or web address]) on 07/31/25 at 22:58. Electronically submitted by Dario Beasley ([employer]). PADMINI DEWEY DO Jul 31, 2025 19:28
[2025-07-31 19:30] VITALS: PULSE 128; O2SAT 96
[2025-07-31 19:58] LABS: Hematocrit 41.5 % (41.0-53.0); Hemoglobin 14.2 g/dL (13.5-17.5); Mean Corpuscular Hemoglobin 25.9 pg (28.0-32.0); Mean Corpuscular Volume 75.6 fL (80.0-100.0)
--- NOTE | 2025-07-31 20:07 | DVH ---
EXAM: CT CT AB PEL WO CON-NO ORAL OR IV INDICATION: urinary retention TECHNIQUE: Volumetric multidetector CT images of the abdomen and pelvis were obtained without contras t. All CT scans at this facility use dose modulation, iterative reconstruction, and/or weight based d osing when appropriate to reduce radiation dose to as low as reasonably achievable. COMPARISON: CT CT AB PEL WO CON-NO ORAL OR IV on DOS: 12/06/24 FINDINGS: [LOWER CHEST]: The partially visualized lung bases are clear without a pleural effusion. The cardiac size is normal without pericardial effusion. [LIVER]: Diffuse hepatic steatosis. [GALLBLADDER AND BILIARY TREE]: No cholelithiasis. [SPLEEN]: Unremarkable. [PANCREAS]: Unremarkable. [ADRENAL GLANDS]: Unremarkable [KIDNEYS]: No hydronephrosis. No nephroureterolithiasis. [BLADDER]: Louis catheter placement. Bladder is decompressed. Surrounding inflammatory stranding. Cor relate for cystitis. [REPRODUCTIVE ORGANS]: Mild prostatomegaly [BOWEL/MESENTERY]: Stomach is decompressed limiting its evaluation. No CT evidence of bowel obstructi on. normal appendix. [ASCITES]: Absent [LYMPHADENOPATHY]: No pathologically enlarged lymph nodes by CT size criteria [VASCULATURE]: No aneurysmal dilatation. [ABDOMINAL WALL]: Unremarkable. [MUSCULOSKELETAL]: No acute fracture or aggressive focal osseous lesion. Multifocal degenerative kinsey ge of the visualized spine. IMPRESSION: 1. Louis catheter placement. 2. Bladder is decompressed. 3. Surrounding inflammatory stranding. 4. Correlate for cystitis. 5. No hydronephrosis or nephroureterolithiasis.
[2025-07-31 20:11] LABS: Alanine Aminotransferase 32 U/L (7-40); Alkaline Phosphatase 62 U/L (46-116); Anion Gap 13 (5-15); BUN/Creatinine Ratio 8.0 (10.0-20.0); Bilirubin, Total 0.9 mg/dL (0.2-1.0); Calcium 9.5 mg/dL (8.7-10.4); Chloride 106 mmol/L (98-107); Sodium 138 mmol/L (136-145)
[2025-07-31 20:13] LABS: Albumin 4.9 g/dL (3.2-4.8); Blood Urea Nitrogen 7 mg/dL (9-23); Carbon Dioxide 19 mmol/L (20-31); Glucose 135 mg/dL (74-106); Potassium 3.4 mmol/L (3.5-5.1); Total Protein 8.3 g/dL (5.7-8.2)
[2025-07-31 20:17] LABS: Total Cells Counted 100.0 (100)
[2025-07-31 20:18] LABS: Anisocytosis Slight
[2025-07-31] MEDS: CEFEPIME 1GM/50ML 50 ML IV ONE (20:45)
[2025-07-31] MEDS: LACTATED RINGER'S 1,900 ML IV ONE (20:45)
--- NOTE | 2025-07-31 20:56 | DVH ---
CHEST RADIOGRAPH Indication: sepsis Technique: Single frontal view of the chest was obtained Comparison: None FINDINGS: Lines and Tubes: None Lungs: No focal consolidation. Pleura: Basilar areas of atelectasis with elevation of the diaphragms No pneumothorax. Cardiomediastinal contours: Unremarkable Bones: No acute osseous abnormality. IMPRESSION: 1. Bibasilar areas of atelectasis..
[2025-07-31 21:44] LABS: INR 1.12 (0.9-1.15); Partial Thromboplastin Time 30.2 SEC (24.5-34.5); Prothrombin Time 11.7 sec (9.3-11.8)
[2025-07-31] MEDS ORDERED: NITROGLYCERIN 0.4 MG SL TAB SL PRN (23:15)
[2025-07-31] MEDS ORDERED: ACETAMINOPHEN 325 MG TAB PO PRN (23:15)
[2025-07-31] MEDS: SODIUM CHLORIDE 0.9% 1,000 ML IV SCH ×2 (23:15→23:50)
[2025-07-31] MEDS ORDERED: MORPHINE SULFATE INJ 2 MG/ml SYRG IV PRN (23:15)
[2025-07-31] MEDS ORDERED: HYDROcodone-ACET 5/325MG TAB PO PRN (23:15)
--- NOTE | 2025-07-31 23:15 | DVHHP2 ---
History of Present Illness Reason for Visit: Sepsis, unspecified organism History of Present Illness The patient is a 49-year-old male with past medical history of kidney stones who presented to [facility] ED with complaint of urinary retention. Patient was seen here earlier for urinary retention and Louis catheter was inserted and was discharged home with Flomax and Bactrim DS. However at home, patient noted that the catheter wasn't draining properly with reddish fluid filling the catheter and was leaking at the catheter insertion site, he became diaphoretic, tachycardic, getting worse that prompted this visit. Patient was seen and evaluated in the ED, laboratory data shows WBC 17.7, platelets 342, sodium 138, potassium 3.4, BUN 7, creatinine 0.87, GFR 104, glucose 135, calcium 9.5, lactic acid 1.5, protein 8.3, albumin 4.9, blood pressure 132/78, heart rate 154 trending down to 110, temperature 99.2 F, O2 saturation 96% on room air. Abdomen/pelvis CT revealing Louis catheter in place, bladder is decompressed, surrounding inflammatory stranding correlate for cystitis. Please see medication orders section in the computer. On my assessment, patient denied chest pain, no headache, diaphoresis, shortness of breaths, diarrhea, nausea, vomiting, no chills. Patient was admitted for further evaluation and medical management. Past Medical History Kidney Stones Past Surgical History Knee surgery Family History Reviewed, noncontributory to the management of this case. Past Social History The patient lives at home, denies smoking, alcohol or illicit drugs abuse. Review of Systems Constitutional: Yes: Weakness; No: Fever, Chills, Sweats, Malaise, Other Eyes: No: Pain, Vision change, Conjunctivae inflammation, Eyelid inflammation, Other, Redness ENT: No: Ear pain, Ear discharge, Nose pain, Nose discharge, Nose congestion, Mouth pain, Mouth swelling, Throat pain, Throat swelling, Other Respiratory: No: Cough, Dry, Shortness of breath, SOB with excertion, Wheezing, Hemoptysis, Pleuritic Pain, Sputum, Wheezing, Other Cardiovascular: No: Chest Pain, Palpitations, Orthopnea, Paroxysmal Noc. Dyspnea, Edema, Lt Headedness, Other Gastrointestinal: No: Nausea, Vomiting, Abdominal Pain, Diarrhea, Constipation, Melena, Hematochezia, Other Genitourinary: No Dysuria, No Frequency, No Incontinence, No Hematuria; Retention, Other (Louis catheter in place) Musculoskeletal: No: other, neck pain, shoulder pain, arm pain, back pain, hand pain, leg pain, foot pain Skin: No: Rash, Lesions, Jaundice, Bruising, Other Neurological: No: Weakness, Numbness, Incoordination, Change in speech, Confusion, Seizures, Other Allergies: Coded Allergies: NO KNOWN ALLERGIES (Unverified , 12/06/24) Medications Current Medications Medications Dose Ordered Sig/Brenda Route Start Time Stop Time Status Last Admin Dose Admin Sodium Chloride 1,000 ml @ 60 mls/hr [id number] IV 07/31/25 23:15 UNV Acetaminophen/ Hydrocodone Bitart 1 tab Q4HP PRN PO 07/31/25 23:15 UNV Ondansetron HCl 4 mg Q4HP PRN IV 07/31/25 23:15 UNV Docusate Sodium 100 mg BIDPRN PRN PO 07/31/25 23:15 UNV Acetaminophen 650 mg Q6HP PRN PO 07/31/25 23:15 UNV Sodium Chloride 1,000 ml @ 75 mls/hr [id number] IV 07/31/25 23:15 UNV Tamsulosin HCl 0.4 mg QPM PO 08/01/25 18:00 UNV Piperacillin Sod/ Tazobactam Sod 100 ml @ 25 mls/hr Q8HR IV 08/01/25 06:00 UNV Exam Vital Signs Vital Signs Date Time Temp Pulse Resp B/P (MAP) Pulse Ox O2 Delivery O2 Flow Rate FiO2 07/31/25 21:46 137 34 132/78 (96) 36 07/31/25 19:30 Room Air* 0 21 07/31/25 19:30 99.2 99.2 General Appearance: Alert, Oriented X3, Cooperative, No acute distress HEENT: Atraumatic, PERRLA, EOMI, Mucous membr. moist/pink Respiratory: Normal air movement Cardiovascular: Regular rate, Normal S1, Normal S2, No murmurs Abdominal: Normal bowel sounds, Soft, No tenderness, No hepatospenomegaly, No masses Extremities: No clubbing, No cyanosis, No edema, Normal pulses, No tenderness/swelling Skin: No rashes, No significant lesion Neuro: Normal speech, Normal tone, Sensation intact, Cranial nerves 3-12 NL, Reflexes 2+, Other (Generalized weakness) Psych/Mental Status: Mental status NL, Mood NL Labs/Xrays Labs Test 07/31/25 21:08 07/31/25 19:45 Range/Units Lactic Acid Level 1.5 0.4-2.0 mmol/L White Blood Count 27.7 H 4.4-10.8 10^3/uL Red Blood Count 5.49 4.5-5.90 10^6/uL Hemoglobin 14.2 13.5-17.5 g/dL Hematocrit 41.5 41.0-53.0 % Mean Corpuscular Volume 75.6 L 80.0-100.0 fL Mean Corpuscular Hemoglobin 25.9 L 28.0-32.0 pg Mean Corpuscular Hemoglobin Concent 34.2 32.0-36.0 g/dL Red Cell Distribution Width 15.5 H 11.8-14.3 % Platelet Count 342 140-450 10^3/uL Mean Platelet Volume 7.9 6.9-10.8 fL Neutrophils (%) (Auto) 37.0-80.0 % Lymphocytes (%) (Auto) 10.0-50.0 % Monocytes (%) (Auto) 0.0-12.0 % Basophils (%) (Auto) 0.0-2.0 % Neutrophils # (Auto) 1.6-8.6 10 ^3/uL Lymphocytes # (Auto) 0.4-5.4 10 ^3/uL Monocytes # (Auto) 0-1.3 10 ^3/uL Differential Total Cells Counted 100.0 100 Neutrophils % (Manual) 80 37.0-80.0 Band Neutrophils % (Manual) 10 Lymphocytes % (Manual) 7 L 10.0-50.0 Monocytes % (Manual) 3 0-12 Eosinophils % (Manual) 0 0-7 Basophils % (Manual) 0 0.0-2.0 Metamyelocytes % (manual) 0 Myelocytes % (Manual) 0 Promyelocytes % (Manual) 0 Blast Cells % (Manual) 0 Reactive Lymphocytes 0 Platelet Estimate Adequate Anisocytosis (manual) Slight Prothrombin Time 11.7 9.3-11.8 sec Prothrombin Time INR 1.12 0.9-1.15 Activated Partial Thromboplast Time 30.2 24.5-34.5 SEC Sodium Level 138 136-145 mmol/L Potassium Level 3.4 L 3.5-5.1 mmol/L Chloride Level 106 98-107 mmol/L Carbon Dioxide Level 19 L 20-31 mmol/L Anion Gap 13 5-15 Blood Urea Nitrogen 7 L 9-23 mg/dL Creatinine 0.87 0.700-1.30 mg/dL Glomerular Filtration Rate Calc 104 >90 mL/min BUN/Creatinine Ratio 8.0 L 10.0-20.0 Serum Glucose 135 H 74-106 mg/dL Calcium Level 9.5 8.7-10.4 mg/dL Total Bilirubin 0.9 0.2-1.0 mg/dL Aspartate Amino Transferase (AST) 19 13-40 U/L Alanine Aminotransferase (ALT) 32 7-40 U/L Alkaline Phosphatase 62 46-116 U/L Total Protein 8.3 H 5.7-8.2 g/dL Albumin 4.9 H 3.2-4.8 g/dL PATIENT: ARLIN RILEY ACCT: [id number] UNIT: [id number] : 1975 LOC: ER ROOM / BED: / AGE / SEX: 49 / M ADM STATUS: REG ER SERVICE 21 ORDERING PHYSICIAN: PADMINI DEWEY DO PROCEDURE(s): ABPL - CT AB PEL WO CON-NO ORAL OR IV REASON: urinary retention ORDER NUMBER(s): [id number], ACCESSION NUMBER(s): [id number] EXAM: CT CT AB PEL WO CON-NO ORAL OR IV INDICATION: urinary retention TECHNIQUE: Volumetric multidetector CT images of the abdomen and pelvis were o btained without contrast. All CT scans at this facility use dose modulation, iterative reconstruction, and/or weight based dosing when appropriate to reduce radiation dose to as low as reasonably achievable. COMPARISON: CT CT AB PEL WO CON-NO ORAL OR IV on DOS: 12/06/24 FINDINGS: [LOWER CHEST]: The partially visualized lung bases are clear without a pleural effusion. The cardiac size is normal without pericardial effusion. [LIVER]: Diffuse hepatic steatosis. [GALLBLADDER AND BILIARY TREE]: No cholelithiasis. [SPLEEN]: Unremarkable. [PANCREAS]: Unremarkable. [ADRENAL GLANDS]: Unremarkable [KIDNEYS]: No hydronephrosis. No nephroureterolithiasis. [BLADDER]: Loius catheter placement. Bladder is decompressed. Surrounding inflammatory stranding. Correlate for cystitis. [REPRODUCTIVE ORGANS]: Mild prostatomegaly [BOWEL/MESENTERY]: Stomach is decompressed limiting its evaluation. No CT evidence of bowel obstruction. normal appendix. [ASCITES]: Absent [LYMPHADENOPATHY]: No pathologically enlarged lymph nodes by CT size criteria [VASCULATURE]: No aneurysmal dilatation. [ABDOMINAL WALL]: Unremarkable. [MUSCULOSKELETAL]: No acute fracture or aggressive focal osseous lesion. Multifocal degenerative change of the visualized spine. IMPRESSION: 1. Louis catheter placement. 2. Bladder is decompressed. 3. Surrounding inflammatory stranding. 4. Correlate for cystitis. 5. No hydronephrosis or nephro-ureterolithiasis. ORDERING PHYSICIAN: PADMINI DEWEY DO PROCEDURE(s): CXRP - CHEST PORTABLE REASON: sepsis ORDER NUMBER(s): [id number], ACCESSION NUMBER(s): [id number] CHEST RADIOGRAPH Indication: sepsis Technique: Single frontal view of the chest was obtained Comparison: None FINDINGS: Lines and Tubes: None Lungs: No focal consolidation. Pleura: Basilar areas of atelectasis with elevation of the diaphragms No pneumothorax. Cardiomediastinal contours: Unremarkable Bones: No acute osseous abnormality. IMPRESSION: 1. Bibasilar areas of atelectasis. SEPSIS Sepsis Screen Date sepsis recognized/suspect: Jul 31, 2025 Time Sepsis recognized/suspect: 1929 Recent Procedure: Yes On Antibiotic Therapy: No Respiratory Rate >20: Yes Heart Rate >90: No Temp<36 C (96.8 F) or >38.3 C: No SBP <90 or MAP <65 mmHG: No New Acute Mental Status Change: No Is the patient on CPAP, BIPAP,: No Physician Orders Bladder Scan (07/31/25 ) Ct Ab Pel Wo Con-No Oral Or Iv (07/31/25 19:22) Urinalysis (07/31/25 20:24) Chest Portable (07/31/25 20:24) Accucheck (07/31/25 20:24) Blood Culture (07/31/25 20:24) Lactic Acid W/ Reflex Order (08/01/25 00:00) Notify Md If Map <65 Or Bp<90 (07/31/25 20:24) If Map<65 Start Vasopressor (07/31/25 20:24) Sepsis Reassesment After Fluid (07/31/25 21:24) Urine Bacterial Culture (07/31/25 23:02) Potassium Er Tablet (Klor-Con Tablet) (07/31/25 23:15) Hemoglobin A1c (07/31/25 23:02) Allergies (07/31/25 23:02) Code Status (07/31/25 23:02) Sodium Chloride 0.9% (07/31/25 23:15) Oxygen Per Hour (07/31/25 23:02) Hydrocodone-Acet 5/325mg Tab ([place] 5/32 (07/31/25 23:15) Ondansetron Hcl (Zofran) (07/31/25 23:15) Docusate Sodium Capsule (Colace Capsule) (07/31/25 23:15) Complete Blood Count (08/01/25 04:00) Comprehensive Metabolic Panel (08/01/25 04:00) Cardiac Diet-2gna,Lofat,Lochol (08/01/25 Breakfast) Condition: Serious (07/31/25 23:02) Acetaminophen Tablet (Tylenol Tablet) (07/31/25 23:15) Bedrest With Bathroom Privileg (07/31/25 23:02) Sequential Compression Device (07/31/25 ) Sodium Chloride 0.9% (07/31/25 23:15) Sodium Chloride 0.9% (07/31/25 23:15) Tamsulosin Hydrochloride (Flomax) (08/01/25 18:00) Piperacillin-Tazob 3.375gm (Zosyn 3.375g (08/01/25 06:00) Admit (07/31/25 23:13) Nitroglycerin Sublingual (Ntrostat Subli (07/31/25 23:15) Morphine Sulfate Injection (07/31/25 23:15) Stat Ekg For Chest Pain (07/31/25 23:13) Notify Md Of Changes From Base (07/31/25 23:13) Product Development Carpenter For 24 Hours (07/31/25 23:13) Emergency Dysrhythmia Protocol (07/31/25 23:13) Rhythm Strips Once Every Shift (07/31/25 23:13) Oxygen By Nasal Cannula (07/31/25 23:13) Vital Signs Date Time Temp Pulse Resp B/P (MAP) Pulse Ox O2 Delivery O2 Flow Rate FiO2 07/31/25 21:46 137 34 132/78 (96) 36 07/31/25 20:04 130 07/31/25 19:30 128 96 Room Air* 0 21 07/31/25 19:30 99.2 128 22 140/102 (115) 96 99.2 07/31/25 18:52 98.0 154 18 155/103 95 98.0 Laboratory Tests Test 07/31/25 19:45 07/31/25 21:08 White Blood Count 27.7 10^3/uL (4.4-10.8) H Lactic Acid Level 1.5 mmol/L (0.4-2.0) Medications Medications Dose Ordered Sig/Brenda Route Start Time Stop Time Status Last Admin Dose Admin Cefepime HCl 50 ml @ 50 mls/hr ONCE ONCE IV 07/31/25 20:45 07/31/25 21:44 DC 07/31/25 20:45 50 MLS/HR Lactated Ringer's 1,900 ml @ 1,900 mls/hr ONCE ONCE IV 07/31/25 20:30 07/31/25 21:29 DC 07/31/25 20:45 1,900 MLS/HR Assessment/Plan Assessment/Plan Sepsis, unspecified organism Hypokalemia Generalized weakness Plan 1. Admit to telemetry unit 2. Breathing treatment 3. Pain control management 4. IV antibiotic management 5. Management of fluids and electrolytes 6. Consultation for hospitalist 7. Diagnostic test abdomen/pelvis CT 8. DVT prophylaxis-on SCDs 9. Repeat labs CBC, CMP in a.m. 10. Home medication reviewed and reconciled 11. Continue with current medical management 12. Treatment plan discussed with patient and RN. Patient verbalized understanding. Plan discussed with: Patient, Other (RN) My Orders Orders - BRANT MAC DNP Procedure Category Date Status Time Urine Bacterial OLEKSANDR 07/31/25 Logged Culture 23:02 Potassium Er Tablet PHA 07/31/25 Logged (Klor-Con Tablet) 23:15 Hemoglobin A1c LAB 07/31/25 Logged 23:02 Allergies KAE 07/31/25 In Process 23:02 Code Status CODE 07/31/25 Transmitted 23:02 Sodium Chloride 0.9% PHA 07/31/25 Logged 23:15 Oxygen Per Hour RT 07/31/25 Transmitted 23:02 Hydrocodone-Acet PHA 07/31/25 Logged 5/325mg Tab ([place] 23:15 Ondansetron Hcl PHA 07/31/25 Logged (Zofran) 23:15 Docusate Sodium PHA 07/31/25 Logged Capsule (Colace 23:15 Complete Blood Count LAB 08/01/25 Verified 04:00 Comprehensive LAB 08/01/25 Verified Metabolic Panel 04:00 Cardiac DIET 08/01/25 Transmitted Diet-2gna,Lofat,Lochol Breakfast Condition: Serious KAE 07/31/25 In Process 23:02 Acetaminophen Tablet PHA 07/31/25 Logged (Tylenol Tablet) 23:15 Bedrest With Bathroom KAE 07/31/25 In Process Privileg 23:02 Sequential KAE 07/31/25 In Process Compression Device Sodium Chloride 0.9% PHA 07/31/25 Logged 23:15 Sodium Chloride 0.9% PHA 07/31/25 Logged 23:15 Tamsulosin [facility] 08/01/25 Logged Hydrochloride (Flomax) 18:00 Piperacillin-Tazob PHA 08/01/25 Logged 3.375gm (Zosyn 3.375g 06:00 Admit ADMIT 07/31/25 Verified 23:13 Nitroglycerin [facility] 07/31/25 Verified Sublingual (Ntrostat 23:15 Morphine Sulfate [facility] 07/31/25 Verified Injection 23:15 Stat Ekg For Chest [facility] 07/31/25 Verified Pain 23:13 Notify Md Of Changes [facility] 07/31/25 Verified From Base 23:13 Product Development Carpenter For [facility] 07/31/25 Verified 24 Hours 23:13 Emergency Dysrhythmia [facility] 07/31/25 Verified Protocol 23:13 Rhythm Strips Once [facility] 07/31/25 Verified Every Shift 23:13 Oxygen By Nasal RT 07/31/25 Verified Cannula 23:13 Problem List: (1) Sepsis, unspecified organism (2) Hypokalemia (3) Generalized weakness Date of Service: Jul 31, 2025 Billing Provider: BRANT MAC DNP Common Visit Codes: [id number] INP/OBS CARE (HIGH) BRANT MAC DNP Jul 31, 2025 23:15
[2025-07-31] MEDS: SODIUM CHLORIDE 0.9% 500 ML IV ONE (23:45)
[2025-08-01] VITALS (10 sets, daily range): BP systolic 125–146; BP diastolic 83–103; PULSE 88–114; RESP 16–20; TEMP 98.1–98.9; O2SAT 94–100
[2025-08-01] MEDS: POTASSIUM CHL 20 Meq TABLET PO ONE
[2025-08-01] MEDS: DOCUSATE SOD 100 MG CAP PO PRN (00:02)
[2025-08-01] MEDS: ONDANSETRON HCL 4 MG/2 ML VIAL IV PRN (00:56)
[2025-08-01 01:25] LABS: Urine Protein, UAD 1+ (Negative)
[2025-08-01] MEDS ORDERED: CEFEPIME 1GM/50ML 50 ML IV SCH (06:00)
[2025-08-01] MEDS: PIPERACILLIN-TAZOB 3.375GM 100 ML IV SCH (06:26)
[2025-08-01 07:46] LABS: Hematocrit 38.7 % (41.0-53.0); Hemoglobin 13.0 g/dL (13.5-17.5); Mean Corpuscular Hemoglobin 25.5 pg (28.0-32.0); Mean Corpuscular Volume 76.0 fL (80.0-100.0); Nucleated Red Blood Cells % 0.0 %
[2025-08-01 08:04] LABS: Alanine Aminotransferase 25 U/L (7-40); Albumin 4.3 g/dL (3.2-4.8); Alkaline Phosphatase 62 U/L (46-116); Anion Gap 10 (5-15); BUN/Creatinine Ratio 9.3 (10.0-20.0); Calcium 8.8 mg/dL (8.7-10.4); Potassium 3.6 mmol/L (3.5-5.1); Sodium 139 mmol/L (136-145); Total Protein 7.4 g/dL (5.7-8.2)
[2025-08-01 08:05] LABS: Bilirubin, Total 0.8 mg/dL (0.2-1.0); Blood Urea Nitrogen 7 mg/dL (9-23); Carbon Dioxide 20 mmol/L (20-31); Chloride 109 mmol/L (98-107); Glucose 128 mg/dL (74-106)
[2025-08-01] MEDS: TAMSULOSIN HYDROCHLORIDE 0.4 MG CAP PO SCH (17:58)
[2025-08-02 05:00] VITALS: BP 117/78; PULSE 95; RESP 18; TEMP 98.1; O2SAT 95
[2025-08-02 08:00] VITALS: PULSE 90; PULSE 93; RESP 17; O2SAT 95
[2025-08-02 09:00] VITALS: BP 112/77; PULSE 85; RESP 20; TEMP 97.9; O2SAT 95
[2025-08-02 13:00] VITALS: BP 139/94; PULSE 74; RESP 16; TEMP 97.5; O2SAT 97
--- NOTE | 2025-08-02 13:26 | DVH ---
CLINICAL HISTORY: acute retention TECHNIQUE: Complete ultrasound exam of the kidneys and bladder was performed. COMPARISON: XY KUB ABDOMEN SINGLE VIEW on DOS: 12/09/24, XY KUB ABDOMEN SINGLE VIEW on DOS: 12/08/24, U S RIGHT LOWER QUAD on DOS: 12/07/24 FINDINGS: The right kidney has normal echogenicity and measures 12.8 cm. There is no focal parenchymal abnormal ity or evidence for stone. There is no hydronephrosis. The left kidney has normal echogenicity and measures 11.7 cm. There is no focal parenchymal abnormal ity or evidence for stone. There is no hydronephrosis. The bladder is grossly unremarkable. IMPRESSION: NO SIGNIFICANT SONOGRAPHIC ABNORMALITY OF THE KIDNEYS.
[2025-08-02] MEDS ORDERED: TAMS-35 PO ×2 (15:38)
[2025-08-02] MEDS ORDERED: SENN-48 PO ×2 (15:38)
[2025-08-02] MEDS ORDERED: LEVO500T91 PO ×2 (15:39)
--- NOTE | 2025-08-02 15:41 | DVHDS2 ---
Discharge Summary Date of Admission Jul 31, 2025 at 23:13 Date of Discharge: Aug 02, 2025 Labs/Diagnostic Data: Laboratory Results Test 08/01/25 07:22 08/01/25 01:00 07/31/25 21:08 07/31/25 19:45 White Blood Count 24.4 10^3/uL (4.4-10.8) Red Blood Count 5.10 10^6/uL (4.5-5.90) Hemoglobin 13.0 g/dL (13.5-17.5) Hematocrit 38.7 % (41.0-53.0) Mean Corpuscular Volume 76.0 fL (80.0-100.0) Mean Corpuscular Hemoglobin 25.5 pg (28.0-32.0) Mean Corpuscular Hemoglobin Concent 33.6 g/dL (32.0-36.0) Red Cell Distribution Width 15.7 % (11.8-14.3) Platelet Count 320 10^3/uL (140-450) Mean Platelet Volume 8.0 fL (6.9-10.8) Neutrophils (%) (Auto) 85.9 % (37.0-80.0) Lymphocytes (%) (Auto) 6.1 % (10.0-50.0) Monocytes (%) (Auto) 7.6 % (0.0-12.0) Eosinophils (%) (Auto) 0.0 % (0.0-7.0) Basophils (%) (Auto) 0.4 % (0.0-2.0) Neutrophils # (Auto) 21.0 10 ^3/uL (1.6-8.6) Lymphocytes # (Auto) 1.5 10 ^3/uL (0.4-5.4) Monocytes # (Auto) 1.8 10 ^3/uL (0-1.3) Eosinophils # (Auto) 0 10 ^3/uL (0-0.8) Basophils # (Auto) 0.1 10 ^3/uL (0-0.2) Nucleated Red Blood Cells 0.0 % Sodium Level 139 mmol/L (136-145) Potassium Level 3.6 mmol/L (3.5-5.1) Chloride Level 109 mmol/L (98-107) Carbon Dioxide Level 20 mmol/L (20-31) Anion Gap 10 (5-15) Blood Urea Nitrogen 7 mg/dL (9-23) Creatinine 0.75 mg/dL (0.700-1.30) Glomerular Filtration Rate Calc 109 mL/min (>90) BUN/Creatinine Ratio 9.3 (10.0-20.0) Serum Glucose 128 mg/dL (74-106) Calcium Level 8.8 mg/dL (8.7-10.4) Total Bilirubin 0.8 mg/dL (0.2-1.0) Aspartate Amino Transferase (AST) 19 U/L (13-40) Alanine Aminotransferase (ALT) 25 U/L (7-40) Alkaline Phosphatase 62 U/L (46-116) Total Protein 7.4 g/dL (5.7-8.2) Albumin 4.3 g/dL (3.2-4.8) Urine Color Light-yellow (Yellow) Urine Clarity Clear (Clear) Urine pH 8.0 (5.0-9.0) Urine Specific [place] 1.013 (1.001-1.035) Urine Protein 1+ (Negative) Urine Ketones 2+ (Negative) Urine Blood 2+ /uL (Negative) Urine Nitrite Negative (Negative) Urine Bilirubin Negative (Negative) Urine Urobilinogen Normal mg/dL (Negative) Urine Leukocyte Esterase 2+ /uL (Negative) Urine RBC 62 /hpf (0 - 3) Urine Microscopic WBC 64 /HPF (0-3) Urine Squamous Epithelial Cells None seen /hpf (<5) Urine Bacteria None seen /hpf (None Seen) Urine Sperm Present /hpf (None Seen) Urine Glucose Normal mg/dL (Normal) Lactic Acid Level 1.5 mmol/L (0.4-2.0) Differential Total Cells Counted 100.0 (100) Neutrophils % (Manual) 80 (37.0-80.0) Band Neutrophils % (Manual) 10 Lymphocytes % (Manual) 7 (10.0-50.0) Monocytes % (Manual) 3 (0-12) Eosinophils % (Manual) 0 (0-7) Basophils % (Manual) 0 (0.0-2.0) Metamyelocytes % (manual) 0 Myelocytes % (Manual) 0 Promyelocytes % (Manual) 0 Blast Cells % (Manual) 0 Reactive Lymphocytes 0 Platelet Estimate Adequate Anisocytosis (manual) Slight Prothrombin Time 11.7 sec (9.3-11.8) Prothrombin Time INR 1.12 (0.9-1.15) Activated Partial Thromboplast Time 30.2 SEC (24.5-34.5) Hemoglobin A1c 5.9 % A1C (<5.7) Other Laboratory Tests 08/01/25 07:22 Final Diagnosis/Problems List UTI acute retention Discharge Disposition: Home Discharge Instruct/Medications Diet: Regular Activity: No Restrictions, As Tolerated Follow Up/Referral: [facility] clinic 08/[address] pereyra urology with dr Tomas Scheduled Levofloxacin Hemihydrate (Levaquin 500 Mg), 1 TAB PO DAILY Levofloxacin Hemihydrate (Levofloxacin), 1 TAB PO DAILY Metronidazole (Flagyl), 1 TAB PO TID Sulfamethoxazole W/Trimethopri (Bactrim Ds Tablet), 1 TAB PO BID Tamsulosin Hcl (Flomax), 1 CAP PO DAILY Tamsulosin Hcl (Flomax), 0.4 MG PO DAILY Scheduled PRN Hydrocodone-Acetaminophen (Hydrocodone Bitartrate/AC 5-325 mg), 1 TAB PO QID PRN Senna (Senna-Lax), 8.6 MG PO DAILYP PRN Discharge Statement: "Patient was advised to return to the ER or call 911 if any headaches, dizziness, shortness of breath, chest pain, abdominal pain, bleeding, fevers, or worsening of medical condition. Patient was counseled about treatment plan, medications, possible side effects, patientverbalized understanding. All questions were answered to the best of my ability. This discharge took greater then 30 minutes in planning, reviewing documentation, counseling the patient, and discussing with other team members." ASSESSMENT ASSESSMENT Assessment UTI acute retention Date of Service: Aug 02, 2025 Billing Provider: MONTSE DUNLAP MD Common Visit Codes: [id number]/[id number] DISCH DAY >30min MONTSE DUNLAP MD Aug 02, 2025 15:41
[2025-08-02] MEDS: TAMSULOSIN HYDROCHLORIDE 0.4 MG CAP PO ONE (16:13)
[2025-08-02 16:58] VITALS: BP 125/80; PULSE 76; RESP 20; TEMP 97.9; O2SAT 97
[2025-08-02 16:59] VITALS: BP 125/80; PULSE 76; RESP 20; TEMP 36.4; O2SAT 98
[2025-08-02] MEDS ORDERED: TAMSULOSIN HYDROCHLORIDE 0.4 MG CAP PO SCH (18:00)
[2025-08-05 09:07] LABS: Prostate Specific Antigen 27.5 ng/mL (0.0-4.0)
== END 2025-08-02 19:00 | disposition home or self-care (01) | DRG 872 ==
LOC: ER 18:53 → OVERFLOW 23:13 → TELE-WESTW 08-01 03:15 → WEST WING 08-02 13:10
PROVIDERS: ADMIT Internal Medicine; ATTEND Internal Medicine
DX: A41.9 Sepsis, unspecified organism (principal); N39.0 Urinary tract infection, site not specified; E87.6 Hypokalemia; Z87.442 Personal history of urinary calculi
CPT/HCPCS: 36415; 71045; 74176; 76775; 80053; 81001; 83036; 83605; 84154; 85007; 85025; 85027; 85610; 85730; 87040; 87086; 96365; 99291; G0378; J2405; J2543